=== PATIENT | female | born 1955 | race Caucasian/White ===

== ENCOUNTER 2022-05-10 08:18 | Outpatient (CLI) | payer MEDICARE, BC, SELFPAY ==
[2022-05-10 09:58] LABS: Chloride* 107 mmol/L (96-114); Potassium* 4.7 mmol/L (3.6-5.1); Sodium* 138 mmol/L (135-149)
[2022-05-10 10:00] LABS: Cholesterol* 177 mg/dL (90-199)
[2022-05-10 10:01] LABS: Blood Urea Nitrogen* 22 mg/dL (7-30); Calcium* 9.2 mg/dL (8.4-10.6); Carbon Dioxide* 28 mmol/L (20-32); Creatinine* 0.8 mg/dL (0.5-1.5); Estimated Glomerular Filt Rate 81 ml/min; Glucose* 98 mg/dL (60-115); HDL Cholesterol* 71 mg/dL (>=50); LDL Cholesterol Calculated 88 mg/dL (<100); Triglycerides* 91 mg/dL (40-149)
== END 2022-05-10 08:19 | disposition home or self-care (01) ==
PROVIDERS: PCP Internal Medicine; Visit Provider Internal Medicine
DX: Z00.00 Encounter for general adult medical examination without abnormal findings (principal); E03.9 Hypothyroidism, unspecified; E78.5 Hyperlipidemia, unspecified; I10 Essential (primary) hypertension
CPT/HCPCS: 80048; 80061; 84443

== ENCOUNTER 2022-06-15 07:30 | Outpatient (RCR) | payer MEDICARE, BC, SELFPAY ==
--- NOTE | 2022-05-17 12:50 | PT.OPEX ---
PT [place] Outpatient Eval PT [facility] Outpatient Eval Start: 05/17/22 08:02 Freq: Status: Active Protocol: Document 05/17/22 08:02 [facility] (Rec: 05/17/22 08:23 AC [id number]) E-signed By Lina Mitchell, PT, ATC Physical Therapy Outpatient Evaluation Insurance Information Insurance Name Medicare B Medical Diagnosis left knee OA left medial meniscal tear foot pain Treating Diagnosis left knee OA overpronation bilaterally Referring MD Draper Subjective Subjective pt has had positive effects on her foot and knee pain from wearing the orthotics we made in July 2021. She has noticed more neuropathic pain in her feet recently, and though her orthotics aren't a full year old yet, she knows they are less shock absorbing now than initially, so she feels it is time for a new pair Current Work Status Retired Precautions Therapy Limitations/Systems Review Not Limited Objective Range of Motion being that patient was last seen less than 1 year ago, we assume her foot measurements are nearly the same, therefore these measurement numbers are from July 2021: right ankle: DF=10, PF=60, INV=30, EV=12, RF varus=2, FF varus=17 left ankle: DF=8, PF=50, INV= 20, EV=15, RRvarus =4, FF varus=12 Assessment Assessment/Impression pt will benefit from skilled PT for custom orthotic fabrication Plan of Care Rehabilitation Potential Excellent Physical Therapy Goals 1. pt will be able to wear the orthotics for a full day with 1/10 max knee and foot discomfort Coordination/Communication With Referral Source Treatment Plan/Direct Interventions Orthotics/Braces Frequency/Duration 1 time visit unless pt requires an adjustment to the orthotic after 2-3 weeks of wearing them Patient Will Be Discharged From Therapy Independently Progressing Evaluation Billing PT Eval No Charge Yes Complexity Low Certification Information Initial Certification Date 05/17/22 Ending Certification Date 08/14/22
== END 2022-08-10 12:40 | disposition home or self-care (01) ==
PROVIDERS: PCP Internal Medicine; Visit Provider Orthopaedic Surgery Sports Medicine
DX: M17.12 Unilateral primary osteoarthritis, left knee (principal); Z51.89 Encounter for other specified aftercare
CPT/HCPCS: 97161; 97760; 97763

== ENCOUNTER 2022-08-22 08:37 | Outpatient (CLI) | payer MEDICARE, BC, SELFPAY ==
--- OUTSIDE RECORDS SUMMARY | 2022-08-22 14:59 | XMS_ITS | Encounter Summary ---
:1955 Author Organization [facility] Address [address] [place] [id number] Care Team Providers Name Role Phone Unavailable Primary Care Provider Unavailable Reason for Referral Outpatient (Routine) - Closed Specialty Diagnoses / Procedures Referred By Contact Refer red To Contact Diagnoses Aneurysm Splenic Artery (HCC) Azar Holly M.D. [place] Procedures US Abdomen Pelvis Vessels Limited Doppler US Mesenteric Artery [address] [place] [address] [phone] Referral ID Status Reason Start Date Expiration Date Visits Requ ested Visits Authorized [id number] Closed 04/29/2021 04/29/2022 1 1 Reason for Visit Outpatient (Routine) - Closed Specialty Diagnoses / Procedures Referred By Contact Refer red To Contact Diagnoses Aneurysm Splenic Artery (HCC) Azar Holly M.D. [facility] Procedures US Abdomen Pelvis Vessels Limited Doppler US Mesenteric Artery [address] [place] [address] [phone] Referral ID Status Reason Start Date Expiration Date Visits Requ ested Visits Authorized [id number] Closed 04/29/2021 04/29/2022 1 1 Encounter Details Date Type Department Care Team Description 06/08/2021 Hospital Encounter Department of [facility], Aneurysm Splenic Radiology, Neha Lerner M.D. Artery (HCC) Building, in [address] [place] [address] [address] [facility] [address] [place], [place] [phone] (Work) [phone] Social History Tobacco Use Types Packs/Day Years Used Date Smoking Tobacco: Never Assessed Social Isolation Answer Date Recorded In a typical week, how many times do you talk on the Patient refused 01/27/2022 phone with family, friends, or neighbors? How often do you get together with friends or Patient refuse d 01/27/2022 relatives? How often do you attend jehovah's witness or shinto services? Patien t refused 01/27/2022 Do you belong to any clubs or organizations such as Patient refused 01/27/2022 jehovah's witness groups, unions, fraternal or athletic groups, or school groups? How often do you attend meetings of the clubs or Patient ref used 01/27/2022 organizations you belong to? Are you now , , , , 01/27/2022 never or living with a partner? Physical Activity Answer Date Recorded On average, how many days per week do you engage in moderate to 3 days 01/27/2022 strenuous exercise (like walking fast, running, jogging, dancing, swimming, biking, or other activities that cause a light or heavy sweat)? On average, how many minutes do you engage in exercise at th is 30 min 01/27/2022 level? Stress Answer Date Recorded Do you feel stress - tense, restless, nervous, or To some ex tent 01/27/2022 anxious, or unable to sleep at night because your mind is troubled all the time - these days? Transportation Needs Answer Date Recorded In the past 12 months, has lack of transportation kept you f rom No 01/27/2022 medical appointments or from getting medications? In the past 12 months, has lack of transportation kept you f rom No 01/27/2022 meetings, work, or getting things needed for daily living? Housing Stability Answer Date Recorded In the last 12 months, was there a time when you were Patien t refused 01/27/2022 not able to pay the mortgage or rent on time? In the last 12 months, how many places have you lived? 1 01/27/2022 In the last 12 months, was there a time when you did No 01/27/20[address] to sleep or slept in a fpc (including now)? Education Answer Date Recorded What is the highest level of school Bachelor's degree (e.g., BA, AB, 05/26/2020 you have completed or the highest BS) degree you have received? Sex Assigned at Date Recorded Female 01/27/2022 2:09 PM CDT documented as of this encounter Medications at Time of Discharge Medication Sig Dispensed Refills Start Date End Date glucosamine sulfate Take 500 mg by 0 (GLUCOSAMINE) 500 mg mouth daily. capsule lisinopriL Take 20 mg by 0 04/24/2020 (PRINIVIL,ZESTRIL) 20 mg mouth daily. tablet loratadine (CLARITIN) 10 mg Take 10 mg by 0 tablet mouth daily. lysine 500 mg tablet Take 500 mg by 0 mouth daily. simvastatin (ZOCOR) 10 mg Take 10 mg by 0 021 tablet mouth daily. cholecalciferol (VITAMIN Take 5,000 Units 0 01/27/2022 D3) 5,000 Unit capsule by mouth daily. levothyroxine (SYNTHROID, Take 25 mcg by 0 201907/19/2022 LEVOTHROID) 25 mcg tablet mouth every morning before breakfast. documented as of this encounter Plan of Treatment Not on filedocumented as of this encounter Procedures Procedure Name Priority Date/Time Associated Comments Diagnosis US ABDOMEN PELVIS RAD - Routine 06/08/2021 9:44 Aneurysm Splenic Re sults for this VESSELS LIMITED (most inpatients AM CDT Artery (HCC) procedur e are in DOPPLER and all the results outpatients) section. documented in this encounter Results US Abdomen Pelvis Vessels Limited Doppler (06/08/2021 9:44 AM CDT) Anatomical Region Laterality Modality Abdomen, Pelvis, Ultrasound RST LOS, Ultrasound ARZ LOS, N/A Ultrasound Ultrasound FLA LOS Specimen (Source) Anatomical Collection Method Collection Time Re ceived Time Location / / Volume Laterality 06/08/2021 9:49 AM CDT Impressions 06/08/2021 10:37 AM CDT Stable 1.2 cm ??splenic artery aneurysm. Narrative 06/08/2021 10:37 AM CDT EXAM: ??US ABDOMEN PELVIS VESSELS LIMITED DOPPLER Exam performed with color and spectral D oppler analysis. COMPARISON: ??Ultrasound abdominal vesse l 05/26/2020; CT abdomen and pelvis with contrast 05/26/2020 FINDINGS: ??Stable fusiform aneurysm in the mid/distal splenic artery measuring 1.2 cm. Splenic calcifications. Procedure Note Kiran Aldridge M.D. - 06/08/2021Formatti ng of this note might be different from the original. EXAM: US ABDOMEN PELVIS VESSELS LIMITED DOPPLER Exam performed with color and spectral D oppler analysis. COMPARISON: Ultrasound abdominal vessel 05/26/2020; CT abdomen and pelvis with contrast 05/26/2020 FINDINGS: Stable fusiform aneurysm in th e mid/distal splenic artery measuring 1.2 cm. Splenic calcifications. IMPRESSION: Stable 1.2 cm splenic artery aneurysm. Azar Holly M.D. IMG US PROCEDURES documented in this encounter Visit Diagnoses Diagnosis Aneurysm Splenic Artery (HCC) documented in this encounter
--- OUTSIDE RECORDS SUMMARY | 2022-08-22 14:59 | XMS_ITS | Encounter Summary ---
:1955 Author Organization [facility] Address [address] [place] [address] Care Team Providers Name Role Phone Unavailable Primary Care Provider Unavailable Reason for Visit Reason Comments Sent back CD to patient Encounter Details Date Type Department Care Team Description 05/12/2020 Clinical Division of Vascular Prescheduling, Sent back CD to Communication and Endovascular Provider patient Surgery in [place], [place] [address] [place] [address] Social History Tobacco Use Types Packs/Day Years Used Date Smoking Tobacco: Never Assessed Social Isolation Answer Date Recorded In a typical week, how many times do you talk on the Patient refused 01/27/2022 phone with family, friends, or neighbors? How often do you get together with friends or Patient refuse d 01/27/2022 relatives? How often do you attend buddhist or denominational services? Patien t refused 01/27/2022 Do you belong to any clubs or organizations such as Patient refused 01/27/2022 buddhist groups, unions, fraternal or athletic groups, or [...] place to sleep or slept in a residential (including now)? Sex Assigned at Date Recorded Female 01/27/2022 2:09 PM CDT documented as of this encounter Miscellaneous Notes Telephone Encounter - Chioma Romeo - 05/12/2020 9:56 AM CDT I sent the CD and paperwork back to the patient to her home address. Chioma Wilson documented in this encounter Plan of Treatment Not on filedocumented as of this encounter Visit Diagnoses Not on filedocumented in this encounter
--- OUTSIDE RECORDS SUMMARY | 2022-08-22 14:59 | XMS_ITS | Encounter Summary ---
:1955 Author Organization [facility] Address [address] [place] [address] Care Team Providers Name Role Phone Unavailable Primary Care Provider Unavailable Reason for Referral Outpatient (Routine) - Closed Specialty Diagnoses / Procedures Referred By Contact Refer red To Contact Diagnoses Aneurysm Splenic Artery (HCC) Azar Holly M.D. [facility] Procedures US Abdomen Pelvis Vessels Limited Doppler US Mesenteric Artery [address] [place] [phone] Referral ID Status Reason Start Date Expiration Date Visits Requ ested Visits Authorized [id number] Closed 04/29/2021 04/29/2022 1 1 Outpatient (Routine) - Closed Specialty Diagnoses / Procedures Referred By Contact Refer red To Contact Vascular Medicine Diagnoses Aneurysm Splenic Artery (HCC) Azar Holly [place] Jose [facility] [address] [place] [address] Referral ID Status Reason Start Date Expiration Date Visits Requ ested Visits Authorized [id number] Closed 04/29/2021 04/29/2022 1 1 Encounter Details Date Type Department Care Team Description 04/29/2021 Orders Only Department of Vascular Sunshine Holly ysedis Splenic Artery Medicine in [place], Edis Cheng (HCC) (Primary Dx) [place] [address] [facility] 200 [place] [phone] Social History Tobacco Use Types Packs/Day Years Used Date Smoking Tobacco: Never Assessed Social Isolation Answer Date Recorded In a typical week, how many times do you talk on the Patient refused 01/27/2022 phone with family, friends, or neighbors? How often do you get together with friends or Patient refuse d 01/27/2022 relatives? How often do you attend rastafari or yazidism services? Lakishaen t refused 01/27/2022 Do you belong to any clubs or organizations such as Patient refused 01/27/2022 rastafari groups, unions, fraStitch or athletic groups, or school groups? How [...] was there a time when you were Юлия fernandes refused 01/27/2022 not able to pay the mortgage or rent on time? In the last 12 months, how many places have you lived? 1 01/27/2022 In the last 12 months, was there a time when you did No 01/27/2022 not [address] to sleep or slept in a fdc (including now)? Education Answer Date Recorded What is the highest level of school Bachelor's degree (e.g., BA, AB, 05/26/2020 you have completed or the highest BS) degree you have received? Sex Assigned at Date Recorded Female 01/27/2022 2:09 PM CDT documented as of this encounter Plan of Treatment Scheduled Referrals Name Type Priority Associated Order Schedule Diagnoses Vascular Medicine - Outpatient Referral Routine Aneurysm Splen ic Expected: Vascular surveillance Artery (HCC) 2020 consult (clinic) (Approximat e), Expires: 04/29/2024 documented as of this encounter Results US Abdomen Pelvis Vessels [...] Stable 1.2 cm splenic artery aneurysm. Azar AVINA US PROCEDURES documented in this encounter Visit Diagnoses Diagnosis Aneurysm Splenic Artery (HCC) - Primary Aneurysm Splenic Artery (HCC) documented in this encounter
--- OUTSIDE RECORDS SUMMARY | 2022-08-22 14:59 | XMS_ITS | Encounter Summary ---
:1955 Author Organization [facility] Address [address] [place] [address] Care Team Providers Name Role Phone Unavailable Primary Care Provider Unavailable Reason for Visit Outpatient (Routine) - Modified Order Specialty Diagnoses / Procedures Referred By Contact Refer red To Contact Diagnoses Aneurysm Splenic Artery (HCC) Azar Holly M.D. [facility] Procedures US Abdomen Pelvis Vessels Limited Doppler US Mesenteric Artery [address] [place] [address] [phone] Referral ID Status Reason Start Date Expiration Date Visits V isits Requested Authorized [id number] Modified 05/19/2020 05/19/2021 1 1 Order Encounter Details Date Type Department Care Team Description 05/26/2020 Hospital Encounter Department of Avni, Aneurysm Splenic Radiology, Neha Lerner M.D. Artery (HCC) [facility], in [address] [place] [address] [place] [address] [place], [place] [phone] (Work) [phone] Social History Tobacco Use Types Packs/Day Years Used Date Smoking Tobacco: Never Assessed Social Isolation Answer Date Recorded In a typical week, how many times do you talk on the Patient refused 01/27/2022 phone with family, friends, or neighbors? How often do you get together with friends or Patient refuse d 01/27/2022 relatives? How often do you attend confucianist or latter-day services? Patien t refused 01/27/2022 Do you belong to any clubs or organizations such as Patient refused 01/27/2022 confucianist groups, unions, fraternal or athletic groups, or [...] place to sleep or slept in a [facility] (including now)? Education Answer Date Recorded What [...] Take 500 mg by 0 mouth daily. cholecalciferol (VITAMIN Take 5,000 Units 0 01/27/2022 D3) 5,000 Unit capsule by mouth daily. levothyroxine (SYNTHROID, Take 25 mcg by 0 201907/19/2022 LEVOTHROID) 25 mcg tablet mouth every morning before breakfast. documented as of this encounter Plan of Treatment Not on filedocumented as of this encounter Procedures Procedure Name Priority Date/Time Associated Comments Diagnosis US ABDOMEN PELVIS RAD - Routine 05/26/2020 2:33 Aneurysm Splenic Re sults for this VESSELS LIMITED (most inpatients PM CDT Artery (HCC) procedur e are in DOPPLER and all the results outpatients) section. documented in this encounter Results US Abdomen Pelvis Vessels Limited Doppler (05/26/2020 2:33 PM CDT) Anatomical Region Laterality Modality Abdomen, Pelvis, Ultrasound RST LOS, Ultrasound ARZ LOS, N/A Ultrasound Ultrasound FLA LOS Specimen (Source) Anatomical Collection Method Collection Time Re ceived Time Location / / Volume Laterality 05/26/2020 2:34 PM CDT Impressions 05/26/2020 2:53 PM CDT Splenic artery aneurysm, measuring 1.2 c m in size. Narrative 05/26/2020 2:53 PM CDT EXAM: ??US ABDOMEN PELVIS VESSELS LIMITED DOPPLER Exam performed with color and spectral D oppler analysis. COMPARISON: ??CT angiogram dated 020 FINDINGS: ??A fusiform aneurysm of the m id/distal splenic artery measures approximately 1.2 cm in size. Allowing f or differences in technique, this finding appears unchanged since the prio r CTA. Incidentally noted calcified granulomas in the spleen. Procedure Note Daniel Muller M.D. - 05/26/2020For matting of this note might be different from the original. EXAM: US ABDOMEN PELVIS VESSELS LIMITED DOPPLER Exam performed with color and spectral D oppler analysis. COMPARISON: CT angiogram dated 0 FINDINGS: A fusiform aneurysm of the mid /distal splenic artery measures approximately 1.2 cm in size. Allowing f or differences in technique, this finding appears unchanged since the prio r CTA. Incidentally noted calcified granulomas in the spleen. IMPRESSION: Splenic artery aneurysm, measuring 1.2 c m in size. Azar G Costopoulos M.D. IMG US PROCEDURES documented in this encounter Visit Diagnoses Diagnosis Aneurysm Splenic Artery (HCC) documented in this encounter
--- OUTSIDE RECORDS SUMMARY | 2022-08-22 14:59 | XMS_ITS | Encounter Summary ---
:1955 Author Organization [facility] Address [address] [place] [address] Care Team Providers Name Role Phone Unavailable Primary Care Provider Unavailable Reason for Referral Outpatient (Routine) - Closed Specialty Diagnoses / Procedures Referred By Contact Refer red To Contact Vascular Medicine Neftaly Raines, [facility] mey Perez [address] [place] [address] Referral ID Status Reason Start Date Expiration Date Visits Requ ested Visits Authorized [id number] Closed 06/08/2021 06/08/2022 1 1 Outpatient (Routine) - Closed Specialty Diagnoses / Procedures Referred By Contact Refer red To Contact Diagnoses Aneurysm Splenic Artery (HCC) Neftaly Raines P.A.-C. [facility] Procedures US Abdomen Pelvis Vessels Limited Doppler [address] [place] [phone] Referral ID Status Reason Start Date Expiration Date Visits Requ ested Visits Authorized [id number] Closed 06/08/2021 06/08/2022 1 1 Reason for Visit Outpatient (Routine) - Closed Specialty Diagnoses / Procedures Referred By Contact Refer red To Contact Vascular Medicine Diagnoses Aneurysm Splenic Artery (HCC) Azar Holly, [facility] Alfred.DRochelle [address] [place] [address] Referral ID Status Reason Start Date Expiration Date Visits Requ ested Visits Authorized [id number] Closed 04/29/2021 04/29/2022 1 1 Encounter Details Date Type Department Care Team Description 06/08/2021 Comprehensive Visit Department of Neftaly Raines Splenic Vascular Medicine in A, P.A.-C. Artery (HCC) [place], [place] [address] [facility] (Primary Dx) [address] [place] [phone] Social History Tobacco Use Types Packs/Day Years Used Date Smoking Tobacco: Never Assessed Social Isolation Answer Date Recorded In a typical week, how many times do you talk on the Patient refused 01/27/2022 phone with family, friends, or neighbors? How often do you get together with friends or Patient refuse d 01/27/2022 relatives? How often do you attend confucianism or druze services? Patien t refused 01/27/2022 Do you belong to any clubs or organizations such as Patient refused 01/27/2022 confucianism groups, unions, fraInfinite Monkeys or athletic groups, or school groups? How [...] place to sleep or slept in a skilled nursing (including now)? Education Answer Date Recorded What is the highest level of school Bachelor's degree (e.g., BA, AB, 05/26/2020 you have completed or the highest BS) degree you have received? Sex Assigned at Date Recorded Female 01/27/2022 2:09 PM CDT documented as of this encounter Last Filed Vital Signs Vital Sign Reading Time Taken Comments Blood Pressure 112/73 06/08/2021 12:45 PM CDT Pulse 73 06/08/2021 12:45 PM CDT Temperature - - Respiratory Rate - - Oxygen Saturation - - Inhaled Oxygen Concentration - - Weight 76 kg (167 lb 8.8 oz) 06/08/2021 12:43 PM CDT Height 165 cm (5' 4.96) 06/08/2021 12:43 PM CDT Body Mass Index 27.92 06/08/2021 12:43 PM CDT documented in this encounter Progress Notes Neftaly Raines P.A.-C. - 06/08/2021 1:00 PM CDT SUBJECTIVE CHIEF COMPLAINT / REASON FOR VISIT Splenic artery aneurysm HISTORY OF PRESENT ILLNESS Aneurysm Splenic Artery (HCC) Ms. Pagan is a 65 y.o. female that I am seeing today for follow-up of her splenic artery aneurysm. She was seen by my colleague Dr. Holly one year ago. Unfortunately her from cancer. She recently lived in [place] for many years but moved to [place] to be near her daughter and son-in-law. She has another daughter with Down Syndrome who lives with her and COVID has been difficult in this transition. It was nice to meet the patient. The patient had a colon ulceration and had evaluation for this locally which included a CT scan which incidentally noted a splenic artery aneurysm at 1.2 cm. My colleagues last year repeat a CT scan and there was no obvious additional aneurysms or fibromuscular dysplasia so we decided to see her back in one year with ultrasound. We did mention to her that at 2 cm is usually when they consider intervention, but recently updated guidelines said we could go up to 3 cm. If he reaches 2 cm, we will reassess with vascular surgery the next steps but most likely get a CTA to better characterize the aneurysm. The patient has been asymptomatic. Patient's history includes hypertension, hypothyroidism, vaginal hysterectomy with BSO for bleeding and fibroids, and remote tonsillectomy. The patient is a never smoker. When she saw my colleague last year, he recommended a statin and she started on Simvastatin 10 mg. We discussed the pros and cons of this medication why we have recommended. The following portions of the patient's history were reviewed and updated as appropriate: allergies,current medications, family history, medical history, social history, surgical history, psychiatric history, substance abuse history, problem list, labs, diagnostic testing. I reviewed the pertinent clinical notes in the electronic health record. REVIEW OF SYSTEMS Systems were reviewed. Pertinent positives and pertinent negatives are documented in the history of present illness. OBJECTIVE VITALS BP 112/73 (BP Location: Left arm, Patient Position: Sitting) Pulse 73 Ht 165 cm Wt 76 kg BMI27.92 kg/m?? Body mass index is 27.92 kg/m??. PHYSICAL EXAMINATION General: In no acute distress Vessels: (Right/Left): Carotid no bruit/no bruit. Radial 4+/4+. Heart: Regular rate and rhythm. Lungs: Clear to auscultation. Abdomen: Soft and non-tender. No masses palpable. No bruits. Psychiatric: Pleasant. DIAGNOSTIC REVIEW All labs and diagnostic studies were reviewed. Ultrasound shows stable fusiform aneurysm in the mid/distal splenic artery measuring 1.2 cm. ASSESSMENT / PLAN #1 Aneurysm Splenic Artery (HCC) Patient's ultrasound shows stable aneurysm and this could be recheck by ultrasound in one year. All questions answered. Total time spent with patient care: 28 minutes. Neftaly Raines P.A.-C. documented in this encounter Plan of Treatment Scheduled Referrals Name Type Priority Associated Diagnoses Order [facility] Vascular Medicine Outpatient Referral Routine Exp ected: office visit 06/08/2022 (clinic) (Approximate), Expires: 06/08/2024 documented as of this encounter Results US Abdomen Pelvis Vessels Limited Doppler (07/19/2022 11:33 AM CDT) Anatomical Region Laterality Modality Abdomen, Pelvis, Ultrasound RST LOS, Ultrasound ARZ LOS, N/A Ultrasound Ultrasound FLA LOS Specimen (Source) Anatomical Collection Method Collection Time Re ceived Time Location / / Volume Laterality 07/19/2022 11:48 AM CDT Impressions 07/19/2022 11:50 AM CDT Splenic artery aneurysm which measures u p to 1.3 cm (previously 1.2 cm). Narrative 07/19/2022 11:50 AM CDT EXAM: US ABDOMEN PELVIS VESSELS LIMITED DOPPLER Exam performed with color and spectral D oppler analysis. COMPARISON: Ultrasound from 06/08/2021. FINDINGS: Again seen is aneurysmal dilat ation of the mid/distal splenic artery which measures up to 1.3 cm in diameter (previously measured 1.2 cm). The celiac artery is patent and without stenosis. Procedure Note Seng Zuniga M.D. - 07/19/2022Format ting of this note might be different from the original. EXAM: US ABDOMEN PELVIS VESSELS LIMITED DOPPLER Exam performed with color and spectral D oppler analysis. COMPARISON: Ultrasound from 06/08/2021. FINDINGS: Again seen is aneurysmal dilat ation of the mid/distal splenic artery which measures up to 1.3 cm in diameter (previously measured 1.2 cm). The celiac artery is patent and without stenosis. IMPRESSION: Splenic artery aneurysm which measures u p to 1.3 cm (previously 1.2 cm). Neftaly AVINA US PROCEDURES documented in this encounter Visit Diagnoses Diagnosis Aneurysm Splenic Artery (HCC) - Primary Aneurysm Splenic Artery (HCC) documented in this encounter
--- OUTSIDE RECORDS SUMMARY | 2022-08-22 14:59 | XMS_ITS | Encounter Summary ---
:1955 Author Organization [facility] Address [address] [place] [address] Care Team Providers Name Role Phone Elsewhere, Pcp Primary Care Provider Unavailable Reason for Visit Outpatient (Routine) - Closed Specialty Diagnoses / Procedures Referred By Contact Refer red To Contact Vascular Medicine Neftaly Raines, Daniela mathias P.A.-C. [address] [place] [address] Referral ID Status Reason Start Date Expiration Date Visits Requ ested Visits Authorized [id number] Closed 06/08/2021 06/08/2022 1 1 Encounter Details Date Type Department Care Team Description 07/19/2022 Office Visit Department of Vascular Neftaly Raines Splenic Artery Medicine in [place], [place] [facility] (Primary Dx) [address] [place] [phone] Social History Tobacco Use Types Packs/Day Years Used Date Smoking Tobacco: Never Smokeless Tobacco: Never Social Isolation Answer Date Recorded In a typical week, how many times do you talk on the Patient refused 01/27/2022 phone with family, friends, or neighbors? How often do you get together with friends or Patient refuse d 01/27/2022 relatives? How often do you attend sikhism or congregation services? Patien t refused 01/27/2022 Do you belong to any clubs or organizations such as Patient refused 01/27/2022 sikhism groups, unions, fraternal or athletic groups, or [...] place to sleep or slept in a penitentiary (including now)? Education Answer Date Recorded What is the highest level of school Bachelor's degree (e.g., BA, AB, 05/26/2020 you have completed or the highest BS) degree you have received? Sex Assigned at Date Recorded Female 01/27/2022 2:09 PM CDT documented as of this encounter Last Filed Vital Signs Vital Sign Reading Time Taken Comments Blood Pressure 112/70 07/19/2022 1:37 PM CDT Pulse 79 07/19/2022 1:37 PM CDT Temperature - - Respiratory Rate - - Oxygen Saturation - - Inhaled Oxygen Concentration - - Weight 75.1 kg (165 lb 9.1 oz) 07/19/2022 1:35 PM CDT Height 165.9 cm (5' 5.32) 07/19/2022 1:35 PM CDT Body Mass Index 27.29 07/19/2022 1:35 PM CDT documented in this encounter Progress Notes Neftaly Raines P.A.-C. - 07/19/2022 1:45 PM CDT SUBJECTIVE CHIEF COMPLAINT / REASON FOR VISIT Splenic artery aneurysm HISTORY OF PRESENT ILLNESS Aneurysm Splenic Artery (HCC) Ms. Pagan is a 67 y.o. female that I am seeing today for follow-up of her splenic artery aneurysm. Unfortunately her from cancer. She lived in [place] for many years but moved to [place] to be near her daughter and son-in-law. She has another daughter with Down Syndrome who lives with her and COVID has been difficult in this transition. It was nice to see her back. The patient had a colon ulceration and had evaluation for this locally which included a CT scan which incidentally noted a splenic artery aneurysm at 1.2 cm. My colleagues in the past repeated a CT scan and there was no obvious additional aneurysms or fibromuscular dysplasia so we have been following yearly by ultrasound. We did mention to her that at 2 cm is usually when they consider intervention, but recently updated guidelines said we could go up to 3 cm. If he reaches 2 cm, we will reassess with vascular surgery the next steps but most likely get a CTA to better characterize the aneurysm. The patient has been asymptomatic. Patient's history includes hypertension, hypothyroidism (currently is off medication for trial), hyperlipidemia, vaginal hysterectomy with BSO for bleeding and fibroids, and remote tonsillectomy. The patient is a never smoker. The following portions of the patient's history [...] history of present illness. OBJECTIVE VITALS BP 112/70 (BP Location: Left arm, Patient Position: Sitting) Pulse 79 Ht 165.9 cm Wt 75.1 kg BMI 27.29 kg/m?? Body mass index is 27.29 kg/m??. PHYSICAL EXAMINATION General: In no acute distress Psychiatric: Pleasant. DIAGNOSTIC REVIEW All labs and diagnostic studies were reviewed. U/S: Splenic artery aneurysm which measures up to 1.3 cm (previously 1.2 cm). ASSESSMENT / PLAN #1 Aneurysm Splenic Artery (HCC) The patient returns for follow-up of her splenic artery aneurysm. This may have grown by 1 mm only in the last year but still is below the 2 cm where we would consider a CT scan. The patient would liketo follow this locally next year so we will attempt to do that and reassess. All questions answered. Total time spent with patient care: 18 minutes. Neftaly Raines P.A.-C. documented in this encounter Plan of Treatment Not on filedocumented as of this encounter Visit Diagnoses Diagnosis Aneurysm Splenic Artery (HCC) - Primary documented in this encounter Care Teams Jacquard Lace Weaver Relationship Specialty Start Date End Date Elsewhere, Pcp PCP - General Internal Medicine 01/27/22 documented as of this encounter
--- OUTSIDE RECORDS SUMMARY | 2022-08-22 14:59 | XMS_ITS | Encounter Summary ---
:1955 Author Organization [facility] Address [address] [place] [address] Care Team Providers Name Role Phone Unavailable Primary Care Provider Unavailable Reason for Referral MRI/CAT/PET Scan (Routine) - Closed Specialty Diagnoses / Procedures Referred By Contact Refer red To Contact Radiology Diagnoses Aneurysm Splenic Artery (HCC) Azar Holly M.D. [facility] Procedures CT Abdomen Pelvis Angiogram with IV Contrast [address] [place] [phone] Referral ID Status Reason Start Date Expiration Date Visits Requ ested Visits Authorized [id number] Closed 05/19/2020 05/19/2021 1 1 Reason for Visit MRI/CAT/PET Scan (Routine) - Closed Specialty Diagnoses / Procedures Referred By Contact Refer red To Contact Radiology Diagnoses Aneurysm Splenic Artery (HCC) Azar Holly M.D. [facility] Procedures CT Abdomen Pelvis Angiogram with IV Contrast [address] [place] [phone] Referral ID Status Reason Start Date Expiration Date Visits Requ ested Visits Authorized [id number] Closed 05/19/2020 05/19/2021 1 1 Encounter Details Date Type Department Care Team Description 05/26/2020 Hospital Encounter Department of [facility], Aneurysm Splenic Radiology, Neha Lerner M.D. Artery (HCC) Building, in [address] [place] [address] [address] [facility] [address] [place], [place] [phone] (Work) [phone] Social History Tobacco Use Types Packs/Day Years Used Date Smoking Tobacco: Never Assessed Social Isolation Answer Date Recorded In a typical week, how many times do you talk on the Patient refused 01/27/2022 phone with family, friends, or neighbors? How often do you get together with friends or Patient refuse d 01/27/2022 relatives? How often do you attend hindu or alevism services? Patien t refused 01/27/2022 Do you belong to any clubs or organizations such as Patient refused 01/27/2022 hindu groups, unions, fraMightyNest or athletic groups, or school groups? How [...] before breakfast. documented as of this encounter Nursing Notes Sunny Olvera, R.N. - 05/26/2020 2:00 PM CDT A review of the patients current medications was completed under the context of radiology care priorto contrast/medication administration. documented in this encounter Plan of Treatment Not on filedocumented as of this encounter Procedures Procedure Name Priority Date/Time Associated Comments Diagnosis CT ABDOMEN PELVIS RAD - Routine 05/26/2020 2:24 Aneurysm Splenic Re sults for this ANGIOGRAM WITH IV (most inpatients PM CDT Artery (HCC) proced ure are in CONTRAST and all the results outpatients) section. documented in this encounter Results CT Abdomen Pelvis Angiogram with IV Contrast (05/26/2020 2:24 PM CDT) Anatomical Region Laterality Modality Abdomen, Pelvis, Cardiovascular RST N/A Comp uted Tomography, Computed LOS, Abdominal ARZ LOS, Vascular Tomogra phy Interventional ARZ LOS, Vascular Interventional FLA LOS, Abdominal FLA LOS Specimen (Source) Anatomical Collection Method Collection Time Re ceived Time Location / / Volume Laterality 05/26/2020 2:45 PM CDT Impressions 05/26/2020 2:53 PM CDT Unchanged 12 x 12 mm distal splenic renetta ry aneurysm. Narrative 05/26/2020 2:53 PM CDT EXAM: ??CT ABDOMEN PELVIS ANGIOGRAM WITH IV CONTRAST COMPARISON: ??Outside CT 04/29/2019 FINDINGS: VASCULAR FINDINGS: * ??Unchanged appearances of a 12 x 12 m m aneurysm in the distal splenic artery (image 90, series 4). The rest of the sp lenic artery is normal. * ??The celiac artery, SMA and JONATHAN are p atent. * ??Patent bilateral dual renal arteries . * ??Patent bilateral iliofemoral arterie s with mild atherosclerosis and no significant stenosis. * ??Patent IVC, portal vein, splenic vei n and SMA. * ??Patent bilateral iliofemoral veins. ADDITIONAL FINDINGS: * ??Subsegmental scarring in bilateral l ower lobes. * ??Calcified granulomas in the liver an d spleen. Unchanged 8 mm hypoattenuating lesion in the left lobe of the liver is too small to characterize. * ??The gallbladder, pancreas, adrenal g lands and kidneys are normal. * ??No small or large bowel dilation. Sm all hiatal hernia. Diverticulum from 2nd part of duodenum. * ??No mass or lymphadenopathy in abdome n or pelvis. * ??Mild degenerative changes of the spi ne. Procedure Note Robles Singh M.B.B.S., M.D. - 05/09 EXAM: CT ABDOMEN PELVIS ANGIOGRAM WITH I V CONTRAST COMPARISON: Outside CT 04/29/2019 FINDINGS: VASCULAR FINDINGS: * Unchanged appearances of a 12 x 12 mm aneurysm in the distal splenic artery (image 90, series 4). The rest of the sp lenic artery is normal. * The celiac artery, SMA and JONATHAN are pat ent. * Patent bilateral dual renal arteries. * Patent bilateral iliofemoral arteries with mild atherosclerosis and no significant stenosis. * Patent IVC, portal vein, splenic vein and SMA. * Patent bilateral iliofemoral veins. ADDITIONAL FINDINGS: * Subsegmental scarring in bilateral low er lobes. * Calcified granulomas in the liver and spleen. Unchanged 8 mm hypoattenuating lesion in the left lobe of the liver is too small to characterize. * The gallbladder, pancreas, adrenal gla nds and kidneys are normal. * No small or large bowel dilation. Smal l hiatal hernia. Diverticulum from 2nd part of duodenum. * No mass or lymphadenopathy in abdomen or pelvis. * Mild degenerative changes of the spine . IMPRESSION: Unchanged 12 x 12 mm distal splenic renetta ry aneurysm. Azar Holly M.D. [facility] PROCEDURES documented in this encounter Visit Diagnoses Diagnosis Aneurysm Splenic Artery (HCC) documented in this encounter Administered Medications Inactive Administered Medications - up to 3 most recent administrations Medication Order MAR Action Action Date Dose Rate Site iohexoL 350 mg iodine/mL solution Given 05/26/2020 2:05 PM CDT 1 00 mL 1-200 mL (OMNIPAQUE) 1-200 mL, intravenous, Once in imaging, contrast, Starting on 05/26/20 at 1333, For 1 dose, Imaging Protocol Orders, Dose per Radiant Medication Guidelines sodium chloride (PF) 0.9 % injection 1-1 00 mL Given 05/26/2020 2:05 PM CDT 30 mL 1-100 mL, intravenous, Once, On 05/26/20 at 1345, For 1 dose, Imaging Protocol Orders documented in this encounter
--- OUTSIDE RECORDS SUMMARY | 2022-08-22 14:59 | XMS_ITS | Clinical Summary ---
:1955 Author Organization [facility] Address [address] [place] [address] Care Team Providers Name Role Phone Elsewhere, Pcp Primary Care Provider Unavailable Source Comments Patient records contain information from all sites at [facility]. For routine questions regarding patient records, call [phone] during business hours, M-F 8:00 AM - 5:00 PM Central Time. Record requests for emergency care only can be directed to [phone] at any time.[facility] Allergies Active Allergy Reactions Severity Noted Date Comments Pollen Extracts Cough 05/19/2020 Medications Medication Sig Dispensed Refills Start Date End Date Status lisinopriL Take 20 mg by 0 04/24/2020 Acti ve (PRINIVIL,ZESTRIL) 20 mouth daily. mg tablet loratadine (CLARITIN) Take 10 mg by 0 Active 10 mg tablet mouth daily. lysine 500 mg tablet Take 500 mg by 0 Active mouth daily. glucosamine sulfate Take 500 mg by 0 Active (GLUCOSAMINE) 500 mg mouth daily. capsule simvastatin (ZOCOR) 10 Take 10 mg by 0 03/09/2021 Active mg tablet mouth daily. Active Problems Problem Noted Date Aneurysm Splenic Artery 07/19/2022 Osteopenia 01/31/2022 Menopause 01/31/2022 Encounters Date Type Specialty Care Team Description 07/19/2022 Office Visit Vascular Medicine Neftaly Raines Aneurysm Splenic A, P.A.-C. Artery (HCC) (P rimary Dx) 07/19/2022 Hospital Encounter Radiology Neftaly Raines Aneurys m Splenic A, P.A.-C. Artery (HCC) from Last 3 Months Social History Tobacco Use Types Packs/Day Years Used Date Smoking Tobacco: Never Smokeless Tobacco: Never Social Isolation Answer Date Recorded In a typical week, how many times do you talk on the Patient refused 01/27/2022 phone with family, friends, or neighbors? How often do you get together with friends or Patient refuse d 01/27/2022 relatives? How often do you attend congregation or yazidism services? Юлия fernandes refused 01/27/2022 Do you belong to any clubs or organizations such as Patient refused 01/27/2022 congregation groups, unions, fraternal or athletic groups, or [...] Date Recorded Female 01/27/2022 2:09 PM CDT Last Filed Vital Signs Vital Sign Reading [...] Mass Index 27.29 07/19/2022 1:35 PM CDT Plan of Treatment Health Maintenance Due Date Last Done Comments CT Colonography 1955 Cologuard 1955 Colonoscopy 1955 Colorectal Cancer Screening 1955 FIT 1955 Fasting Glucose for Diabetes 1955 Screening Hepatitis C Screening 1955 Mammogram 1955 Potassium Level 1955 Sodium Level 1955 DTaP,Tdap,and Td Vaccines (1 - 11/19/2013 11/18/2013 Tdap) Creatinine Level 05/19/2021 05/19/2020 Depression Screening (Annual 10/09/2021 PHQ-2) Fall Risk Screen (Annual) 10/09/2021 COVID-19 Vaccine (5 - Booster for 04/01/2022 02/04/2022, , Pfizer series) 01/01/2021, Additional history exists Zoster Vaccines Completed 08/18/2018, 06/18/2018, 2014 Pneumococcal vaccine (65+ years) Completed 06/17/2020, 06/2020 Bone Density Scan (Osteoporosis Discontinued 01/26/2022 Screen) Influenza Vaccine Completed 08/05/2022, 08/03/2021, 08/19/2020, Additional history exists Procedures Procedure Name Priority Date/Time Associated Comments Diagnosis US ABDOMEN PELVIS RAD - Routine 07/19/2022 11:33 Aneurysm Splenic R esults for this VESSELS LIMITED (most inpatients AM CDT Artery (HCC) procedur e are in DOPPLER and all the results outpatients) section. from Last 3 Months Results US Abdomen Pelvis Vessels Limited Doppler [...] to 1.3 cm (previously 1.2 cm). Neftaly Raines P.A.-C. IMG US PROCEDURES from Last 3 Months Insurance Payer Benefit Plan / Subscriber ID Effective Phone Address T ype Group Dates MEDICARE MEDICARE A AND [id number] 2019-Prese [phone] [place] [address] [facility] [id number] 2022-[place]se [place] [place] [id number] Indemnity [facility] MEDICARE BLUE B nt MILY MUELLER [id number] Care Teams Member Certification Manager Relationship Specialty Start Date End Date Elsewhere, Pcp PCP - General Internal Medicine 01/27/22
--- OUTSIDE RECORDS SUMMARY | 2022-08-22 14:59 | XMS_ITS | Encounter Summary ---
:1955 Author Organization [facility] Address [address] [place] [address] Care Team Providers Name Role Phone Unavailable Primary Care Provider Unavailable Reason for Referral Outpatient (Routine) - Closed Specialty Diagnoses / Procedures Referred By Contact Refer red To Contact Vascular Medicine Diagnoses Aneurysm Splenic Artery (HCC) Azar Holly [facility] [place] [address] [place] [address] Referral ID Status Reason Start Date Expiration Date Visits Requ ested Visits Authorized [id number] Closed 05/19/2020 05/19/2021 1 1 MRI/CAT/PET Scan (Routine) - Closed Specialty Diagnoses / Procedures Referred By Contact Refer red To Contact Radiology Diagnoses Aneurysm Splenic Artery (HCC) Azar Holly M.D. [facility] Procedures CT Abdomen Pelvis Angiogram with IV Contrast [address] [place], [place] [address] Referral ID Status Reason Start Date Expiration Date Visits Requ ested Visits Authorized [id number] Closed 05/19/2020 05/19/2021 1 1 Reason for Visit Outpatient (Routine) - Closed Specialty Diagnoses / Procedures Referred By Contact Refer red To Contact Vascular Surgery Diagnoses Aneurysm Splenic Artery (HCC) Susi Hazel [place] Jose Overton [address] [place] [address] Referral ID Status Reason Start Date Expiration Date Visits Requ ested Visits Authorized [id number] Closed 05/01/2020 05/01/2021 1 1 Encounter Details Date Type Department Care Team Description 05/19/2020 Comprehensive Visit Department of Misha Holly Splenic Artery (HCC) (Primary Dx); Vascular Medicine Azar Lerner M.D. Hypertension Essential Primary; in [place] [address] [address] [place], [place] [address] [facility] [address] [place], [place] [phone] (Work) [phone] Social History Tobacco Use Types Packs/Day Years Used Date Smoking Tobacco: Never Assessed Social Isolation Answer Date Recorded In a typical week, how many times do you talk on the Patient refused 01/27/2022 phone with family, friends, or neighbors? How often do you get together with friends or Patient refuse d 01/27/2022 relatives? How often do you attend jainism or mu-ism services? Patien t refused 01/27/2022 Do you belong to any clubs or organizations such as Patient refused 01/27/2022 jainism groups, unions, fraVoovio aka [employer] or athletic groups, or school groups? How [...] place to sleep or slept in a senior living (including now)? Sex Assigned at Date Recorded Female 01/27/2022 2:09 PM CDT documented as of this encounter Last Filed Vital Signs Vital Sign Reading Time Taken Comments Blood Pressure 120/70 05/19/2020 12:39 PM CDT Pulse 69 05/19/2020 12:39 PM CDT Temperature - - Respiratory Rate - - Oxygen Saturation - - Inhaled Oxygen Concentration - - Weight 73.5 kg (162 lb 0.6 oz) 05/19/2020 12:37 PM CDT Height 166.1 cm (5' 5.39) 05/19/2020 12:37 PM CDT Body Mass Index 26.64 05/19/2020 12:37 PM CDT documented in this encounter Consult Notes Azar Holly M.D. - 05/19/2020 1:00 PM CDT REFERRAL SOURCE Susi Hazel M.D. [address] [place] [address] SUBJECTIVE CHIEF COMPLAINT / REASON FOR VISIT HISTORY OF PRESENT ILLNESS Ms. Pagan is a 64 y.o. female that I am seeing today for an opinion and recommendations on a splenic artery aneurysm. The patient has been referred by Susi Hazel M.D. 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 tells me that she had the incidental finding of a splenic artery aneurysm on a CT scan of the abdomen last year in [place]. There are images in [facility]S dated April 29 of last year and the report is as noted below. She is asymptomatic with her 1.2 centimeter splenic artery aneurysm. The recommendation made to her last year was to follow the aneurysm yearly and she is due for a recheck this year. She has subsequently moved to [place] and has been referred here for surveillance. She has had no problems with x-ray contrast and no issues with renal insufficiency. Past Medical History: Her past medical history includes hypertension, hypothyroidism, vaginal hysterectomy with BSO for bleeding and fibroids, and remote tonsillectomy. Social History: She has never been a smoker. She drinks very little alcohol. Family History: Mother age 77 from the complications of Parkinson's Disease, father age 62 from the complications of alcoholism and lupus, sister age 63, sister age 78, and a brother age 16 from the complications of cerebral palsy. There is no family history of arterial aneur ysms in these individuals to the patient's knowledge. The following portions of the patient's history were reviewed and updated as appropriate: allergies,current medications, family history, medical history, social history, surgical history, psychiatric history, substance abuse history, problem list, labs, diagnostics tests. I reviewed the pertinent clinical notes in the electronic health record. REVIEW OF SYSTEMS A complete review of systems was performed with pertinent information listed in the HPI, all others negative. OBJECTIVE VITALS BP 120/70 (BP Location: Right arm, Patient Position: Sitting) Pulse 69 Ht 166.1 cm Wt 73.5 kg BMI 26.64 kg/m?? PHYSICAL EXAMINATION Body mass index is 26.64 kg/m??. Physical Exam Neurological: Awake, alert, and appropriately conversant. Psychiatry: In no distress and she did not appear to be depressed. Vessels: Radial pulses were 4+ bilaterally, ulnars 3+ bilaterally, brachials 4+ bilaterally, carotids 4+ bilaterally, femorals 3+ bilaterally, popliteals 2+ bilaterally, and dorsalis pedis and posterior tibials 4+ bilaterally. Eyes: The pupils were equal, round, and reactive to light and accommodation. Extraocular movements were intact. Optic discs were not visualized. ENT: Tympanic membranes were obscured bilaterally. Oropharynx was not examined as the patient was wearing a mask due to the COVID-19 pandemic. Respiratory: Lungs were clear to auscultation. Cardiovascular: Cardiac exam revealed a regular rate with a normal S1 and S2. Abdomen: Active bowel sounds. No bruits. No tenderness. : Not examined. Musculoskeletal: No spinous process tenderness on back examination. She did not have limb atrophy. DIAGNOSTIC REVIEW All relevant labs and diagnostic studies below were reviewed. She had paper records with laboratories dated April 17 of this year which noted a glucose of 98 with a creatinine of 0.7, sodium 140, potassium 4.4, calcium 9.1, total cholesterol 200, triglycerides 104, LDL cholesterol 113, and HDL cholesterol 65. Within QREADS there is a CT of the abdomen and pelvis with contrast dated April 29, 2019 with a report attached indicating the presence of a 1.2 centimeter splenic artery aneurysm. I personally reviewed the CT scan of the abdomen and pelvis dated April 29, 2019 and available withinQREADS today at the time of the patient's visit. ASSESSMENT / PLAN ASSESSMENT #1 Aneurysm Splenic Artery (HCC) has an incidentally discovered and asymptomatic 1.2 centimeter splenic artery aneurysm. Sheis due for an annual recheck and I think it would be reasonable to repeat a CTA of the abdomen and pelvis and also obtain an ultrasound exam to see if the aneurysm can be adequately imaged on ultrasound exam for purposes of future surveillance. We discussed when we would consider repair of an asymptomatic and non-rapidly growing splenic artery aneurysm, and usually that would be at a diameter of 2.0 centimeters or greater. I also believe that we should look carefully for any other intra-abdominal aneurysms and to also look for any underlying arterial conditions such as Fibromuscular Dysplasia whichmight explain the presence of the splenic artery aneurysm. #2 Hypertension Essential Primary This is a risk factor for atherosclerosis and arterial aneurysm formation and is on treatment. #3 Hypothyroidism This is a risk factor for hyperlipidemia with subsequent atherosclerosis and arterial aneurysm formation and is on treatment. PLAN 1. Recheck serum creatinine before contrast imaging procedures here. 2. CTA of the abdomen and pelvis. 3. Celiac and mesenteric arterial ultrasound exam to see if the splenic artery aneurysm can be adequately imaged. 4. I will see the patient in return after she completes the above. Total time spent with patient: 55 minutes. Time spent in counseling and coordination of care: 30 minutes. Azar Holly M.D. documented in this encounter Plan of Treatment Scheduled Referrals Name Type Priority Associated Diagnoses Order S [facility] Vascular Medicine Outpatient Referral Routine Aneurysm Splenic Expected: office visit Artery (HCC) 05/19/2020 (clinic) (Approximate), Expires: 05/19/2023 documented as of this encounter Results CT Abdomen Pelvis Angiogram [...] spi ne. Procedure Note Robles Singh M.B.B.S., MLuigi. - 05/09 EXAM: CT ABDOMEN PELVIS ANGIOGRAM [...] splenic renetta ry aneurysm. Azar Holly M.D. IMG CT PROCEDURES Creatinine with Estimated GFR (05/19/2020 2:25 PM CDT) athologist Signature Creatinine 0.96 0.59 - 05/19/2020 DTL 1.04 mg/dL 3:19 PM CDT eGFR-Non 62 >=60 05/19/2020 DTL Black/ mL/min/BSA 3:19 PM CDT Ivorian Comment: ----ADDITIONAL INFORMATION---- Estimated GFR calculated using the 2009 CKD_EPI creatinine equation. eGFR-Black/ 72 >=60 mL/min/BSA 2019 3:19 PM CDT DTL Comment: ----ADDITIONAL INFORMATION---- Estimated GFR calculated using the 2009 CKD_EPI creatinine equation. Specimen Anatomical Collection Method Collection Time Receive d Time (Source) Location / / Volume Laterality Blood (Blood, 05/19/2020 2:25 PM 05/19/20 20 3:03 Venous) CDT PM CDT Azar Holly M.D. LAB BLOOD ADD-ON Performing Organization Address City/State/ZIP Code Phon e Number [facility] - [address] [place], [place] [address] [facility] [place] [address] Laboratories-[facility] [address] documented in this encounter Visit Diagnoses Diagnosis Aneurysm Splenic Artery (HCC) - Primary Hypertension Essential Primary Hypothyroidism Aneurysm Splenic Artery (HCC) documented in this encounter
--- OUTSIDE RECORDS SUMMARY | 2022-08-22 14:59 | XMS_ITS | Encounter Summary ---
:1955 Author Organization [facility] Address [address] [place] [address] Care Team Providers Name Role Phone Unavailable Primary Care Provider Unavailable Reason for Referral Outpatient (Routine) - Closed Specialty Diagnoses / Procedures Referred By Contact Refer red To Contact Vascular Surgery Diagnoses Aneurysm Splenic Artery (HCC) Susi Hazel [place] M.D. [address] [place] [address] Referral ID Status Reason Start Date Expiration Date Visits Requ ested Visits Authorized [id number] Closed 05/01/2020 05/01/2021 1 1 Encounter Details Date Type Department Care Team Description 05/01/2020 [facility] Susi Hazel Aneurysm Splenic AND MIRA Payan M.D. Artery (HCC) [address] [facility] [address] [facility] (Primary Dx) [place] [address] [phone] Social History Tobacco Use Types Packs/Day Years Used Date Smoking Tobacco: Never Assessed Social Isolation Answer Date Recorded In a typical week, how many times do you talk on the Patient refused 01/27/2022 phone with family, friends, or neighbors? How often do you get together with friends or Patient refuse d 01/27/2022 relatives? How often do you attend caodaism or episcopalian services? Patien t refused 01/27/2022 Do you belong to any clubs or organizations such as Patient refused 01/27/2022 caodaism groups, unions, fraternal or athletic groups, or [...] place to sleep or slept in a jail (including now)? Sex Assigned at Date Recorded Female 01/27/2022 2:09 PM CDT documented as of this encounter Plan of Treatment Scheduled Referrals Name Type Priority Associated Diagnoses Order S [facility] Vascular Center Outpatient Referral Routine Aneurysm Splenic E xpected: Referral Artery (HCC) 05/01/2020 (Approximate), Expires: 05/01/2023 documented as of this encounter Visit Diagnoses Diagnosis Aneurysm Splenic Artery (HCC) - Primary documented in this encounter
--- OUTSIDE RECORDS SUMMARY | 2022-08-22 14:59 | XMS_ITS | Encounter Summary ---
:1955 Author Organization [facility] Address [address] [place] [address] Care Team Providers Name Role Phone Elsewhere, Pcp Primary Care Provider Unavailable Reason for Visit Appointment Request (Routine) - Closed Specialty Diagnoses / Procedures Referred By Contact Refer red To Contact Endocrinology Diagnoses Osteopenia Osteoporosis Referral ID Status Reason Start Date Expiration Date Visits Requ ested Visits Authorized [id number] Closed 01/05/2022 01/05/2023 1 1 Encounter Details Date Type Department Care Team Description 01/31/2022 Comprehensive Visit Division of Milton Pace (Primary Dx); Endocrinology precious Tapia M.D., Ph.D. [place], [place] [address] [facility] [address] [place] [phone] Social History Tobacco Use Types Packs/Day Years Used Date Smoking Tobacco: Never Smokeless Tobacco: Never Social Isolation Answer Date Recorded In a typical week, how many times do you talk on the Patient refused 01/27/2022 phone with family, friends, or neighbors? How often do you get together with friends or Patient refuse d 01/27/2022 relatives? How often do you attend shinto or latter-day services? Lakishaen t refused 01/27/2022 Do you belong to any clubs or organizations such as Patient refused 01/27/2022 shinto groups, unions, fraternal or athletic groups, or [...] place to sleep or slept in a fci (including now)? Education Answer Date Recorded What is the highest level of school Bachelor's degree (e.g., BA, AB, 05/26/2020 you have completed or the highest BS) degree you have received? Sex Assigned at Date Recorded Female 01/27/2022 2:09 PM CDT documented as of this encounter Last Filed Vital Signs Vital Sign Reading Time Taken Comments Blood Pressure 131/77 01/31/2022 2:35 PM CDT Pulse 98 01/31/2022 2:35 PM CDT Temperature - - Respiratory Rate - - Oxygen Saturation - - Inhaled Oxygen Concentration - - Weight 76.4 kg (168 lb 6.9 oz) 01/31/2022 2:35 PM CDT Height 162.2 cm (5' 3.86) 01/31/2022 2:35 PM CDT Body Mass Index 29.04 01/31/2022 2:35 PM CDT documented in this encounter Consult Notes Milton Pace M.D., Ph.D. - 01/31/2022 2:30 PM CDT Referral source: Self-referred. She has previously been followed by Dr. Dm Elliott in [place]. SUBJECTIVE HISTORY This patient presents for evaluation of osteopenia. BONE MINERAL DENSITY TESTING Performed January 26, 2022 Left femur neck T-score -2.1 Left total hip T-score-1.7 Right femur neck T-score-1.6 Right total hip T-score-1.2 Lumbar spine T-score-2.1 Trabecular bone score 1.282 FRAX score 12.1% for any fracture and 2.2% specifically for hip fracture over the next 10 years FRACTURE AND HEIGHT LOSS HISTORY She denies any fractures as an adult. She estimates height loss at 1 in. MOBILITY/LIVING ENVIRONMENT/FALL RISK Patient has had at least 1 fall during the past 5 years which occurred when she slipped while on thestairs The patient denies the following risk factors for falling: Vision impairment Medications/sleeping pill Imbalance Neurologic disorder Diabetes mellitus RISK FACTORS FOR OSTEOPOROSIS/OSTEOPOROTIC FRACTURE Medications affecting bone health - denies Family history of osteopenia/osteoporosis - she is unsure Kidney stones or hypercalcemia/hypercalciuria - denies Significant gastrointestinal surgery - denies Diarrhea/malabsorption - denies Weight loss - denies Tobacco use - denies Alcohol use - rare social Hypogonadism - underwent VENKAT/BSO at age 49 secondary to fibroids. She was maintained on hormone replacement therapy for approximately 3 years thereafter Transplantation - denies Hyperthyroidism - denies Rheumatoid arthritis - denies Other risk factors - history of hypovitaminosis D TREATMENT - MEDICATIONS FOR OSTEOPENIA/OSTEOPOROSIS Past treatment has included: None TREATMENT: NUTRITION/FITNESS Dietary calcium intake: She has 1 serving of milk daily, eats yogurt most mornings, has cheese several times a week, and occasionally eats ice cream Calcium and vitamin D supplementation: She takes supplemental calcium 300 mg daily, and supplementalvitamin-D 400 International Unit daily Activity/Exercise: Her physical activity is primarily related to activities of daily living around her home MEDICAL HISTORY The following portions of the patient's history were reviewed and updated as appropriate: allergies,current medications, family history, medical history, social history, surgical history and problem list. OBJECTIVE PHYSICAL EXAMINATION Vitals: 01/31/22 1435 BP: 131/77 Pulse: 98 General: Appears well. In no acute distress HEENT: Dental health appears relatively good. Spine: No tenderness to palpation along her entire spine. I am able to insert 3 fingers between her superior hips and lower ribs bilaterally. She has a wall- occiput distance of 1 fingerbreadth with minimal to no kyphosis. Gait: I do not appreciate overt imbalance. Psych: Mood and affect normal. DIAGNOSTICS PERTINENT LABORATORY RESULTS Normal studies within the past several years include: Serum calcium Serum phosphorus Bone alkaline phosphatase Serum CTX Serum osteocalcin Serum P1NP Serum creatinine 25-hydroxyvitamin D Celiac antibodies negative 24 hour urine calcium 24 hour urine creatinine ASSESSMENT / PLAN #1 Osteopenia #2 Menopause The patient was provided with written and/or verbal information regarding: the importance of limiting risk for falls and heavy lifting, use of proper technique with a straight back when lifting, maintaining an active lifestyle to include skeletal loading in the form of walking or other weightbearing activities for at least an hour in total daily, and maintaining adequate calcium and vitamin D intake.She was provided with the ???Sources of Calcium?? handout. We also discussed how bone mineral density tests are interpreted, changes in bone mass across the lifespan, the difference between bone forming and bone removing cells, and how bone removing cells are affected by antiresorptive therapy. We also discussed that it is not possible to directly compare her previous bone mineral density test results performed in [facility] in February 2019 with her current test results given these are on different machines and that slight differences in calibration might makesignificant differences in density assessment. At present, there is no definitive indication for initiation of pharmacologic therapy. We discussed that eventually she will likely be a good candidate for antiresorptive therapy to limit her risk for progressive bone loss and future fractures. She does note that at some point she may need a left kneereplacement. We discussed that in that context, it may be reasonable to consider medication such as alendronate 70 mg provided once weekly in order to prevent further loss of her bone mass. Oral bisphosphonate therapy would then be provided for a 5 year course prior to consideration of a bisphosphonate holiday. If she were intolerant of oral bisphosphonate, then she would be a good candidate for intra venous zoledronic acid 5 mg provided once yearly for 3 years prior to consideration of bisphosphonate holiday. It would be reasonable to repeat bone mineral density testing in 2-3 years to evaluate for interval change if she does not begin pharmacologic therapy. If she does begin pharmacologic therapy, it wouldalso be reasonable to repeat bone mineral density testing in 2-3 years to evaluate for stability versus interval change. Ms. Pagan was understanding of, and in agreement with, all of the above plans. Total time 60 minutes. Return Date: 2 years Telehealth: Either Return to: Self or [facility]ROS Orders mail in: Patient preference Medications: None prescribed Refills requests: Self as needed documented in this encounter Plan of Treatment Not on filedocumented as of this encounter Visit Diagnoses Diagnosis Osteopenia - Primary Menopause documented in this encounter Care Teams Kennel Helper Relationship Specialty Start Date End Date Elsewhere, Pcp PCP - General Internal Medicine 01/27/22 documented as of this encounter
--- OUTSIDE RECORDS SUMMARY | 2022-08-22 14:59 | XMS_ITS | Encounter Summary ---
:1955 Author Organization [facility] Address [address] [place] [address] Care Team Providers Name Role Phone Unavailable Primary Care Provider Unavailable Encounter Details Date Type Department Care Team Description 05/19/2020 Hospital Encounter Department of Monica Holly Laboratory Medicine Azar Lerner M.D. Essential Primary and Pathology, [address] [place] [address] in [place], [place] [phone] [place] [address] [place], [place] (Work) [phone] Social History Tobacco Use Types Packs/Day Years Used Date Smoking Tobacco: Never Assessed Social Isolation Answer Date Recorded In a typical week, how many times do you talk on the Patient refused 01/27/2022 phone with family, friends, or neighbors? How often do you get together with friends or Patient refuse d 01/27/2022 relatives? How often do you attend temple or adventism services? Patien t refused 01/27/2022 Do you belong to any clubs or organizations such as Patient refused 01/27/2022 temple groups, unions, fraternal or athletic groups, or [...] minutes do you engage in exercise at [facility] 30 min 01/27/2022 level? Stress Answer Date [...] place to sleep or slept in a halfway (including now)? Sex Assigned at Date Recorded [...] encounter Procedures Procedure Name Priority Date/Time Associated Diagnosis Comme nts CREATININE WITH Routine 05/19/2020 2:25 PM Hypertension Result s for this EGFR, S/P CDT Essential Primary procedure are in the results section. documented in this encounter Results Creatinine with Estimated GFR (05/19/2020 2:25 PM [...] Organization Address City/State/ZIP Code Phon e Number [facility] - [address] [place], [place] [address] [facility] [place] [address] Laboratories-[facility] [address] documented in this encounter Visit Diagnoses Diagnosis Hypertension Essential Primary documented in this encounter
--- OUTSIDE RECORDS SUMMARY | 2022-08-22 14:59 | XMS_ITS | Encounter Summary ---
:1955 Author Organization [facility] Address [address] [place] [address] Care Team Providers Name Role Phone Elsewhere, Pcp Primary Care Provider Unavailable Reason for Referral Outpatient (Routine) - Closed Specialty Diagnoses / Procedures Referred By Contact Refer red To Contact Diagnoses Aneurysm Splenic Artery (HCC) Neftaly Raines P.A.-C. [place] Procedures US Abdomen Pelvis Vessels Limited Doppler [address] [place] [address] [phone] Referral ID Status Reason Start Date Expiration Date Visits Requ ested Visits Authorized [id number] Closed 06/08/2021 06/08/2022 1 1 Reason for Visit Outpatient (Routine) - Closed Specialty Diagnoses / Procedures Referred By Contact Refer red To Contact Diagnoses Aneurysm Splenic Artery (HCC) Neftaly Raines P.A.-C. [place] Procedures US Abdomen Pelvis Vessels Limited Doppler [address] [place] [address] [phone] Referral ID Status Reason Start Date Expiration Date Visits Requ ested Visits Authorized [id number] Closed 06/08/2021 06/08/2022 1 1 Encounter Details Date Type Department Care Team Description 07/19/2022 Hospital Encounter Department of Neftaly Raines Splenic Radiology, Neha Clemente P.A.-C. Artery (HCC) Building, in [address] [place] [address] [address] [facility] [address] [place], [place] [phone] (Work) [phone] Social History Tobacco Use Types Packs/Day Years Used Date Smoking Tobacco: Never Smokeless Tobacco: Never Social Isolation Answer Date Recorded In a typical week, how many times do you talk on the Patient refused 01/27/2022 phone with family, friends, or neighbors? How often do you get together with friends or Patient refuse d 01/27/2022 relatives? How often do you attend restorationism or bahai services? Lakishaen t refused 01/27/2022 Do you belong to any clubs or organizations such as Patient refused 01/27/2022 restorationism groups, unions, [employer] or athletic groups, or school groups? How [...] there a time when you were Patien dom refused 01/27/2022 not able to pay the [...] Date glucosamine sulfate Take 500 mg by mouth 0 (GLUCOSAMINE) 500 mg daily. capsule lisinopriL Take 20 mg by mouth 0 04/24/2020 (PRINIVIL,ZESTRIL) 20 mg daily. tablet loratadine (CLARITIN) 10 mg Take 10 mg by mouth 0 tablet daily. lysine 500 mg tablet Take 500 mg by mouth 0 daily. simvastatin (ZOCOR) 10 mg Take 10 mg by mouth 0 0 03/09/2021 tablet daily. documented as of this encounter Plan of [...] cm (previously 1.2 cm). Neftaly Raines P.A.-C. [facility] US PROCEDURES documented in this encounter Visit Diagnoses Diagnosis Aneurysm Splenic Artery (HCC) documented in this encounter Care Teams Business Transformation Consultant Relationship Specialty Start Date End Date Elsewhere, Pcp PCP - General Internal Medicine 01/27/22 documented as of this encounter
--- OUTSIDE RECORDS SUMMARY | 2022-08-22 14:59 | XMS_ITS | Encounter Summary ---
:1955 Author Organization [facility] Address [address] [place] [address] Care Team Providers Name Role Phone Elsewhere, Pcp Primary Care Provider Unavailable Reason for Visit Reason Comments Pre-visit Intake Encounter Details Date Type Department Care Team Description 01/27/2022 Clinical Communication Visit Review in Pr e-visit Intake [place], [place] 200 [place], [place] [address]255 Social History Tobacco Use Types Packs/Day Years Used Date Smoking Tobacco: Never Smokeless Tobacco: Never Social Isolation Answer Date Recorded In a typical week, how many times do you talk on the Patient refused 01/27/2022 phone with family, friends, or neighbors? How often do you get together with friends or Patient refuse d 01/27/2022 relatives? How often do you attend buddhist or uatsdin services? Patien t refused 01/27/2022 Do you [...] Diagnoses Not on filedocumented in this encounter Care Teams Basketball Scout Relationship Specialty Start Date End Date Elsewhere, Pcp PCP - General Internal Medicine 01/27/22 documented as of this encounter
--- OUTSIDE RECORDS SUMMARY | 2022-08-22 14:59 | XMS_ITS | Encounter Summary ---
:1955 Author Organization [facility] Address [address] [place] [address] Care Team Providers Name Role Phone Unavailable Primary Care Provider Unavailable Reason for Referral Outpatient (Routine) - Closed Specialty Diagnoses / Procedures Referred By Contact Refer red To Contact Diagnoses Osteoporosis Milton Pace M.D., [facility] Procedures BMD Bone Density Spine Hips Ph.D. [address] [place] [phone] Referral ID Status Reason Start Date Expiration Date Visits Requ ested Visits Authorized [id number] Closed 01/06/2022 01/06/2023 1 1 Reason for Visit Outpatient (Routine) - Closed Specialty Diagnoses / Procedures Referred By Contact Refer red To Contact Diagnoses Osteoporosis Milton Pace M.D., [facility] Procedures BMD Bone Density Spine Hips Ph.D. [address] [place] [phone] Referral ID Status Reason Start Date Expiration Date Visits Requ ested Visits Authorized [id number] Closed 01/06/2022 01/06/2023 1 1 Encounter Details Date Type Department Care Team Description 01/26/2022 Hospital Encounter Department of Milton Pace, Ost eoporosis RadiologyNeha M.D., Ph.D. [facility], in [address] [place] [phone] [place], [place] [phone] (Wo rk) [phone] Social History Tobacco Use Types Packs/Day Years Used Date Smoking Tobacco: Never Assessed Social Isolation Answer Date Recorded In a typical week, how many times do you talk on the Patient refused 01/27/2022 phone with family, friends, or neighbors? How often do you get together with friends or Patient refuse d 01/27/2022 relatives? How often do you attend roman catholic or yazdanism services? Patien t refused 01/27/2022 Do you belong to any clubs or organizations such as Patient refused 01/27/2022 roman catholic groups, unions, fraternal or athletic groups, or [...] place to sleep or slept in a [place] [facility] [place] facility (including now)? Education Answer Date Recorded What [...] Procedure Name Priority Date/Time Associated Comments Diagnosis BMD BONE DENSITY RAD - Routine 01/26/2022 1:54 Osteoporosis Results for this SPINE HIPS (most inpatients PM CDT procedure a re in and all the results outpatients) section. documented in this encounter Results BMD Bone Density Spine Hips (01/26/2022 1:54 PM CDT) Anatomical Region Laterality Modality Hip, Lumbar Spine, Nuclear Medicine RST LOS, N/A Radiographic Imaging Musculoskeletal ARZ LOS, Muskuloskeletal FLA LOS Specimen (Source) Anatomical Collection Method Collection Time Re ceived Time Location / / Volume Laterality 01/26/2022 2:14 PM CDT Impressions 01/26/2022 2:15 PM CDT Low bone density (Osteopenia) AP Spine (region: L1-L4) Low bone density (Osteopenia) DualFemur (region: Neck Left) ?? Narrative 01/26/2022 2:15 PM CDT EXAM: ??BMD BONE DENSITY SPINE HIPS Bone Mineral Density (BMD) analysis perf ormed on [facility] with serial number [id number]. ? FINDINGS: Left Hip: Femur Neck: BMD = 0.747 g/cm2 T-score = -2.1 ?Z-score = -0.8 Total Hip: BMD = 0.799 g/cm2 T-score = -1.7 ?Z-score = -0.6 Right Hip: Femur Neck: BMD = 0.813 g/cm2 T-score = -1.6 ?? Z-score = -0.3 Total Hip: BMD = 0.862 g/cm2 T-score = -1.2 ?Z-score = -0.1 Lumbar Spine: L1: BMD = 0.927 g/cm2 L2: BMD = 0.960 g/cm2 L3: BMD = 0.991 g/cm2 L4: BMD = 0.886 g/cm2 Total Lumbar Spine (L1-L4): BMD = 0.941 g/cm2 T-score = -2.1 ?Z-score = -0.8 ? Trabecular Bone Score: L1-L4: TBS = 1.282 < 1.23: low 1.23 -1.31: borderline ?? > 1.31: normal ?? A low TBS has been associated with incre ased risk of fractures in certain populations. TBS should not be used alone to determine treatment recommendations. It can be used in conjunction with BMD and FRAX to inform management. Please note: A more comprehensive DXA re port, including images and graphs, is available in [employer]. In the absence of other causes of low BM D or demonstrated skeletal fragility, osteoporosis may be diagnosed in post-menopausal women and m en at or above age 50 when the T-score is at or below -2.5 as defined by the WHO. Low bone density is present at T-scores between -1 and - 2.5. The diagnosis in pre-menopausal women and men < age 50 ca n be based on low bone density or evidence of skeletal fragility in the appropriate clinical se tting. Based on the bone density results, and o n the patient's answers to the Fracture Risk Assessment questionnaire (please refer to appropria te image stored in the BMD study in [employer]), the calculated ten year probability of fracture is: FRAX Risk Factors: None FRAX (10 yr probability) adjusted for TB S Major Osteoporotic Fracture: ??12.1 % Hip Fracture: ?2.2 % ? Degenerative changes are present which m ay spuriously elevate the spine BMD measurement. Procedure Note Johnna Livingston M.D. - 01/26/2022Formatt ing of this note might be different from the original. EXAM: BMD BONE DENSITY SPINE HIPS Bone Mineral Density (BMD) analysis perf ormed on [employer] with serial number [id number]. FINDINGS: Left Hip: Femur Neck: BMD = 0.747 g/cm2 T-score = -2.1 Z-score = -0.8 Total Hip: BMD = 0.799 g/cm2 T-score = -1.7 Z-score = -0.6 Right Hip: Femur Neck: BMD = 0.813 g/cm2 T-score = -1.6 Z-score = -0.3 Total Hip: BMD = 0.862 g/cm2 T-score = -1.2 Z-score = -0.1 Lumbar Spine: L1: BMD = 0.927 g/cm2 L2: BMD = 0.960 g/cm2 L3: BMD = 0.991 g/cm2 L4: BMD = 0.886 g/cm2 Total Lumbar Spine (L1-L4): BMD = 0.941 g/cm2 T-score = -2.1 Z-score = -0.8 Trabecular Bone Score: L1-L4: TBS = 1.282 < 1.23: low 1.23 -1.31: borderline > 1.31: normal A low TBS has been associated with incre ased risk of fractures in certain populations. TBS should not be used alone to determine treatment recommendations. It can be used in conjunction with BMD and FRAX to inform management. Please note: A more comprehensive DXA re port, including images and graphs, is available in [employer]. In the absence of other causes of low BM D or demonstrated skeletal fragility, osteoporosis may be diagnosed in post-menopausal women and m en at or above age 50 when the T-score is at or below -2.5 as defined by the WHO. Low bone density is present at T-scores between -1 and - 2.5. The diagnosis in pre-menopausal women and men < age 50 ca n be based on low bone density or evidence of skeletal fragility in the appropriate clinical se tting. Based on the bone density results, and o n the patient's answers to the Fracture Risk Assessment questionnaire (please refer to appropria te image stored in the BMD study in [employer]), the calculated ten year probability of fracture is: FRAX Risk Factors: None FRAX (10 yr probability) adjusted for TB S Major Osteoporotic Fracture: 12.1 % Hip Fracture: 2.2 % Degenerative changes are present which m ay spuriously elevate the spine BMD measurement. IMPRESSION: Low bone density (Osteopenia) AP Spine ( region: L1-L4) Low bone density (Osteopenia) DualFemur (region: Neck Left) Milton Pace M.D., Ph.D. IMG DXA PROCEDURES documented in this encounter Visit Diagnoses Diagnosis Osteoporosis documented in this encounter
--- OUTSIDE RECORDS SUMMARY | 2022-08-22 14:59 | XMS_ITS | Encounter Summary ---
:1955 Author Organization [facility] Address [address] [place] [address] Care Team Providers Name Role Phone Unavailable Primary Care Provider Unavailable Reason for Visit Reason Comments Return Visit Encounter Details Date Type Department Care Team Description 04/29/2021 Clinical Communication [facility], Return Visit Medicine in [place], Alfred Cheng [place] [address] [facility] [address] [place] [phone] Social History Tobacco Use Types Packs/Day Years Used Date Smoking Tobacco: Never Assessed Social Isolation Answer Date Recorded In a typical week, how many times do you talk on the Patient refused 01/27/2022 phone with family, friends, or neighbors? How often do you get together with friends or Patient refuse d 01/27/2022 relatives? How often do you attend caodaism or uatsdin services? Patien t refused 01/27/2022 [...] place to sleep or slept in a alf (including now)? Education Answer Date Recorded What is the highest level of school Bachelor's degree (e.g., BA, AB, 05/26/2020 you have completed or the highest BS) degree you have received? Sex Assigned at Date Recorded Female 01/27/2022 2:09 PM CDT documented as of this encounter Miscellaneous Notes Telephone Encounter - Azar Holly M.D. - 04/29/2021 2:58 PM CDT Orders sent. Telephone Encounter - Yvette Teague - 04/29/2021 9:[address] Holly, MESSAGE NOTE Name and relationship to the patient: Patient Last appointment date: 05/26/2020 Appointment/Visit Type/Schedule Procedure: Appts/Labs/Images requested: RTN - with NPPA? and US Additional comments: Per your note from 05/26/2020 please order testing and return. PLAN 1. I would recommend a yearly ultrasound examination for surveillance of the splenic artery aneurysm. 2. It would be reasonable to consider placing her on a statin drug as discussed above. Requested Patient Response: Requested Patient Response: Telephone Call: # PASS: Call [phone] Thanks! documented in this encounter Plan of Treatment Not on filedocumented as of this encounter Visit Diagnoses Not on filedocumented in this encounter
--- OUTSIDE RECORDS SUMMARY | 2022-08-22 14:59 | XMS_ITS | Encounter Summary ---
:1955 Author Organization [facility] Address [address] [place] [address] Care Team Providers Name Role Phone Unavailable Primary Care Provider Unavailable Reason for Referral Outpatient (Routine) - Closed Specialty Diagnoses / Procedures Referred By Contact Refer red To Contact Diagnoses Osteoporosis Milton Pace M.D., [facility] Procedures BMD Bone Density Spine Hips Ph.D. [address] [place] [address] Referral ID Status Reason Start Date Expiration Date Visits Requ ested Visits Authorized [id number] Closed 01/06/2022 01/06/2023 1 1 Reason for Visit Reason Comments Pre-visit Testing Orders Encounter Details Date Type Department Care Team Description 01/06/2022 Clinical Division of Milton Pace Pre-visit Varsha [facility] Endocrinology percious Tapia M.D., Ph.D. Orders [place], [place] [address] [place] [address] [address] [place] [address] [phone] Social History Tobacco Use Types Packs/Day Years Used Date Smoking Tobacco: Never Assessed Social Isolation Answer Date Recorded In a typical week, how many times do you talk on the Patient refused 01/27/2022 phone with family, friends, or neighbors? How often do you get together with friends or Patient refuse d 01/27/2022 relatives? How often do you attend amish or mandaeism services? Юлия tapia refused 01/27/2022 Do you belong to any clubs or organizations such as Patient refused 01/27/2022 amish groups, unions, fraternal or athletic groups, or [...] place to sleep or slept in a long-term (including now)? Education Answer Date Recorded What is the highest level of school Bachelor's degree (e.g., BA, AB, 05/26/2020 you have completed or the highest BS) degree you have received? Sex Assigned at Date Recorded Female 01/27/2022 2:09 PM CDT documented as of this encounter Miscellaneous Notes Telephone Encounter - Vincent Barrington W - 01/06/2022 10:24 AM CDT Caller: Patient Last appt date: N/A Last provider seen: N/A Diagnosis: N/A Follow up instructions from last clinical note: N/A Calendar options/suggestions: New patient scheduled to see you 01/31/22 Action needed: Patient last had a bone density scan in 2019. She will be bringing any imaging and reports she has to the appt. She is not currently on any bone medications. Would you like to place orders for testing before the visit? Orders pended for bone density, please review. Thank you, Jin SAHA Instructions: Call pt to schedule testing if ordered documented in this encounter Plan of Treatment Not on filedocumented as of this encounter Results BMD Bone Density Spine [...] Mineral Density (BMD) analysis perf ormed on [employer] with serial number [id number]. ? FINDINGS: Left Hip: Femur Neck: BMD [...] including images and graphs, is available in [employer]. In the absence of other causes of [...] image stored in the BMD study in [employer]), the calculated ten year probability of fracture [...] Mineral Density (BMD) analysis perf ormed on [employer] with serial number [id number]. FINDINGS: Left Hip: Femur Neck: BMD = [...] including images and graphs, is available in [employer]. In the absence of other causes of [...] in this encounter Visit Diagnoses Diagnosis Osteoporosis - Primary Osteoporosis documented in this encounter
--- OUTSIDE RECORDS SUMMARY | 2022-08-22 14:59 | XMS_ITS | Encounter Summary ---
:1955 Author Organization [facility] Address [address] [place] [address] Care Team Providers Name Role Phone Unavailable Primary Care Provider Unavailable Reason for Visit Outpatient (Routine) - Closed Specialty Diagnoses / Procedures Referred By Contact Refer red To Contact Vascular Medicine Diagnoses Aneurysm Splenic Artery (HCC) Azar Holly [place] M.D. [address] [place] [address] Referral ID Status Reason Start Date Expiration Date Visits Requ ested Visits Authorized [id number] Closed 05/19/2020 05/19/2021 1 1 Encounter Details Date Type Department Care Team Description 05/26/2020 Office Visit Department of Vascular Sunshine Holly Splenic Artery Medicine in [facility] Alfred Cheng (HCC) [address] [place] [phone] [phone] Social History Tobacco Use Types Packs/Day Years Used Date Smoking Tobacco: Never Assessed Social Isolation Answer Date Recorded In a typical week, how many times do you talk on the Patient refused 01/27/2022 phone with family, friends, or neighbors? How often do you get together with friends or Patient refuse d 01/27/2022 relatives? How often do you attend scientology or mandaen services? Patien t refused 01/27/2022 Do you belong to any clubs or organizations such as Patient refused 01/27/2022 scientology groups, unions, fraternal or athletic groups, or [...] PM CDT documented as of this encounter Progress Notes Azar Holly M.D. - 05/26/2020 3:45 PM CDT SUBJECTIVE Ms. Pagan is a 64 y.o. female who is returning today for review of her imaging studies. We talked about her splenic artery aneurysm. She asked about risk factors. She does have the hypertension, but she does not have a tobacco use history, hyperlipidemia, or diabetes. She did have lung scarring that showed up on the CTA study, but no history of pneumonia. She is asymptomatic from a pulmonary standpoint. OBJECTIVE VITALS There were no vitals taken for this visit. PHYSICAL EXAMINATION There is no height or weight on file to calculate BMI. DIAGNOSTIC REVIEW Her serum creatinine was 0.96 milligrams/deciliter. Her CTA study was compared to a CT from April 29 of last year and that showed an unchanged 1.2 x 1.2 centimeter distal splenic artery aneurysm. Incidentally noted was subsegmental scarring in both lower lobes of the lungs and an unchanged 8 millimeter hypoattenuating lesion in the left lobe of the liver which was too small to characterize. Other findings are as per the report. An ultrasound of the abdomen and pelvis showed a fusiform aneurysm of the mid/distal splenic artery measuring approximately 1.2 centimeters in size and allowing for differences in technique, this appeared unchanged from the prior CTA study. ASSESSMENT / PLAN ASSESSMENT #1 Aneurysm Splenic Artery (HCC) has a 1.2 centimeters splenic artery aneurysm which is adequately imaged on an ultrasound study. She has no other aneurysms and nothing on the CT scan to suggest Fibromuscular Dysplasia or an underlying genetic abnormality. This appears to be an isolated splenic artery aneurysm and therefore I would suggest yearly surveillance with an ultrasound. She does appear to have a benign liver lesionwithout change compared to last year. It would be reasonable to place her on a statin drug regardless of what her lipid values are as she does have an arterial aneurysm and she will talk to her primarycare physician about this. A target total cholesterol for her would be well under 200 milligrams/deci liter with a target LDL cholesterol of under 100 milligrams/deciliter. PLAN 1. I would recommend a yearly ultrasound examination for surveillance of the splenic artery aneurysm. 2. It would be reasonable to consider placing her on a statin drug as discussed above. Total time spent with patient: 25 minutes. Time spent in counseling and coordination of care: 15 minutes. Azar Holly M.D. documented in this encounter Plan of Treatment Not on filedocumented as of this encounter Visit Diagnoses Diagnosis Aneurysm Splenic Artery (HCC) documented in this encounter
== END 2022-08-22 08:38 | disposition home or self-care (01) ==
LOC: NFLDREF 14:09
PROVIDERS: PCP Internal Medicine; Visit Provider Internal Medicine
DX: E03.9 Hypothyroidism, unspecified (principal)
CPT/HCPCS: 84443

== ENCOUNTER 2022-11-01 15:50 | Outpatient (CLI) | payer MEDICARE, BC, SELFPAY ==
--- NOTE | 2022-11-01 16:00 | CRLHL7_ITS ---
For Patients: As a result of the Century Cures Act, medical imaging exams and procedure reports are released immediately into your electronic medical record. You may view this report before your referring provider. If you have questions, please contact your health care provider. Indication: Chronic sinusitis. Technique: Noncontrast axial CT of the paranasal sinuses with coronal reformats are provided. No comparisons. Findings: The visualized paranasal sinuses are clear. Left-sided lexie bullosa. The ostiomeatal complexes are patent bilaterally. The visualized intraorbital contents appear within normal limits. Impression: Unremarkable CT of the paranasal sinuses. Please note that all CT scans at this facility use dose modulation, iterative reconstruction, and/or weight-based dosing when appropriate to reduce radiation dose to as low as reasonably achievable. Dictated by Mathew Leon MD @ 11/01/2022 5:14:57 PM (Electronically Signed)
== END 2022-11-01 15:51 | disposition home or self-care (01) ==
PROVIDERS: PCP Internal Medicine; Visit Provider Otolaryngology
DX: J32.9 Chronic sinusitis, unspecified (principal)
CPT/HCPCS: 70486

== ENCOUNTER 2022-11-17 08:59 | Outpatient (CLI) | payer MEDICARE, BC, SELFPAY | END 2022-11-17 09:00 | disposition home or self-care (01) | LOC: NFLDREF 09:06 | PROVIDERS: PCP Internal Medicine; Visit Provider Internal Medicine | DX: E03.8 Other specified hypothyroidism (principal) | CPT/HCPCS: 84443 ==

== ENCOUNTER 2022-12-22 09:05 | Outpatient (CLI) | payer MEDICARE, BC, SELFPAY ==
--- NOTE | 2022-12-22 09:15 | CRLHL7_ITS ---
For Patients: As a result of the Cures Act, medical imaging exams and procedure reports are released immediately into your electronic medical record. You may view this report before your referring provider. If you have questions, please contact your health care provider. BILATERAL SCREENING MAMMOGRAM WITH COMPUTER-AIDED DETECTION AND TOMOSYNTHESIS TECHNIQUE: CC and MLO views were obtained. These mammographic images have been obtained using full-field digital technique. These mammographic images were interpreted with the benefit of computer-aided detection. Breast tomosynthesis was used in this interpretation. COMPARISON FILM: 12/20/21, 11/30/20, 11/11/19. FINDINGS: There are scattered areas of fibroglandular density. IMPRESSION: There is no radiographic evidence for malignancy. ASSESSMENT: BI-RADS Category 1: Negative RECOMMENDATION: Routine screening mammogram in 1 year. A lay language report of this examination will be provided to the patient. UMESH BLAKELY M.D. Diagnostic Radiologist [email or web address] Transcribed: 12/22/2022, 2:[address]/Dictated by: Umesh Blakely MD @ 12/22/2022 12:10:00 PM (Electronically Signed)
== END 2022-12-22 09:06 | disposition home or self-care (01) ==
LOC: MAMMO 09:06
PROVIDERS: PCP Internal Medicine; Visit Provider Internal Medicine
DX: Z12.31 Encounter for screening mammogram for malignant neoplasm of breast (principal)
CPT/HCPCS: 77063; 77067

== ENCOUNTER 2023-04-06 07:33 | Outpatient (CLI) | payer MEDICARE, BC, SELFPAY | END 2023-04-06 07:34 | disposition home or self-care (01) | LOC: NFLDREF 10:22 | PROVIDERS: PCP Internal Medicine; Referring Provider Internal Medicine; Visit Provider Internal Medicine | DX: I10 Essential (primary) hypertension (principal); E78.5 Hyperlipidemia, unspecified | CPT/HCPCS: 80048; 80061 ==

== ENCOUNTER 2023-04-14 11:04 | Day surgery (SDC) | payer MEDICARE, BC, SELFPAY ==
[2023-04-14] VITALS (13 sets, daily range): BP systolic 111–135; BP diastolic 62–87; PULSE 67–86; RESP 12–16; TEMP 36.4–36.7; O2SAT 96–99; BMI 29.4
[2023-04-14] MEDS: LACTATED RINGERS 1000 ML 1,000 ML 100 ML IV (11:20)
[2023-04-14] MEDS: SODIUM CHLORIDE 0.9 % (FLUSH) 10 ML SYRINGE IVF (12:11)
[2023-04-14] MEDS: OXYMETAZOLINE 0.05% NASAL SPRAY 2 SPRAY NOSTRIL-B (12:40)
[2023-04-14] MEDS: BUPIVACAINE 0.5%/EPINEPHRINE 0.9 MG (30.9 ML) INJECTION (13:02)
[2023-04-14] MEDS: OXYMETAZOLINE (AFRIN) SOAK 1 EACH TOPICAL (13:03)
[2023-04-14] MEDS: BUPIVACAINE 0.5 %/EPI 1:200K 30 ML INJECTION (13:03)
[2023-04-14] MEDS: MUPIROCIN 1 GM PACKET 1 APPLIC TOPICAL (13:03)
[2023-04-14] MEDS: COCAINE HCL 4 % 4 ML SOLUTION NOSTRIL-B (13:03)
--- NOTE | 2023-04-14 13:21 | W.ANESCHARGE ---
Anesthesia Charges Start Date/Time Anesthesia Start Date: 04/14/23 Anesthesia Start Time: 12:46 Stop Date/Time Anesthesia Stop Date: 04/14/23 Anesthesia Stop Time: 13:27
--- NOTE | 2023-04-14 14:08 | W.PM.ENTPROC ---
Procedure Note Date of procedure: 04/14/23 Procedure: Preoperative diagnosis nasal obstruction, nasal headache, deviated septum, left middle turbinate lexie bullosa, inferior turbinate hypertrophy bilateral Postoperative diagnosis same Procedure nasal septoplasty, endoscopic partial resection left middle turbinate lexie bullosa, submucous partial resection inferior turbinates bilateral Under general endotracheal anesthesia patient was prepped and draped in usual fashion the nose injected and decongested. Incision was made in the septal mucosa on the left side anterior to the deflection mucosa on either side of the deflection was elevated in a piece of bone and cartilage was resected trimmed and returned to intraseptal space. The lexie bullosa was incised along its inferolateral aspect to the hollow portion. The lexie bone was then infractured into the hollow portion in the turbinate crushed with the Seun forceps. A stab incision was made in the anterior of the right inferior turbinate a tunnel created with a Dave dissector. A conservative anterior submucous resection was performed the lexie bone was also outfractured. The Coblation was used to cauterize intramurally along the inferior 10%. This was repeated on the opposite side in identical fashion. Merocel packing soaked in Bactroban was placed on either side of the septum. The patient procedure well was taken recovery in satisfactory condition. Blood loss less than 25 mL. Surgeon: Jared Hoffman MD
[2023-04-14] MEDS: ACETAMINOPHEN 325 MG TABLET PO ×2 (14:17→14:21)
[2023-04-14] MEDS: IBUPROFEN 200 MG TABLET PO ×2 (14:22)
== END 2023-04-14 15:21 | disposition home or self-care (01) ==
LOC: OR 11:05
PROVIDERS: PCP Internal Medicine; Visit Provider Otolaryngology
PROC: (CPT 31231; principal; 2023-04-14 12:15)
DX: J34.2 Deviated nasal septum (principal); J34.3 Hypertrophy of nasal turbinates; R51.9 Headache, unspecified; J34.89 Other specified disorders of nose and nasal sinuses
CPT/HCPCS: 30520; 30140; 31240; 00160; A9270; J0330; J1100; J2371; J2405; J2704; J3010; J3490; J7120

== ENCOUNTER 2023-12-26 13:32 | Outpatient (CLI) | payer MEDICARE, BC, SELFPAY ==
--- NOTE | 2023-12-26 13:40 | MM_ITS ---
Patient: YAO ALBARADO Facility:?[facility] Patient ID:?[id number] Site Patient ID:?[id number]. Site :?[id number] Study:?XRay-Breast Bilateral 3D W/CAD-12/26/2023 2:07:05 PM Ordering Physician:Susi Younger Final Report: BILATERAL SCREENING MAMMOGRAM WITH COMPUTER-AIDED DETECTION AND TOMOSYNTHESIS TECHNIQUE: CC and MLO views were obtained. These mammographic images have been obtained using full-field digital technique. These mammographic images were interpreted with the benefit of computer-aided detection. Breast Tomosynthesis was used in this interpretation. COMPARISON FILM: 12/22/22, 12/20/21, 11/30/20. FINDINGS: There are scattered areas of fibroglandular density IMPRESSION: There is no radiographic evidence for malignancy. ASSESSMENT: BI-RADS Category 1: Negative RECOMMENDATION: Routine screening mammogram in 1 year. A lay language report of this examination will be provided to the patient. Umesh Villegas M.D. Diagnostic Radiologist [email or web address] LEVY/bill D& Transcribed: 9:30 p.m. KOURTNEY/Dictated by: Umesh Villegas MD @ 12/27/2023 12:20:00 PM Signed by:Rodriguez Villegas MD @12/28/2023 5:28:11 AM (Electronic Signature)
== END 2023-12-26 13:33 | disposition home or self-care (01) ==
PROVIDERS: PCP Internal Medicine; Visit Provider Internal Medicine
DX: Z12.31 Encounter for screening mammogram for malignant neoplasm of breast (principal)
CPT/HCPCS: 77063; 77067

== ENCOUNTER 2024-01-03 13:00 | Outpatient (RCR) | payer MEDICARE, BC, SELFPAY ==
--- NOTE | 2023-12-27 08:21 | URNOTE ---
Prior auth is not required for Zoledronic Acid (J3489). Pt has medicare/BC Supplement. Services are based on medical necessity and follow medicare guidelines.
[2024-01-01 15:10] LABS: Est. Creatinine Clearance* 45.85; Estimated Glomerular Filt Rate 61 ml/min
[2024-01-01 15:11] LABS: Calcium* 9.5 mg/dL (8.4-10.6)
[2024-01-03 12:49] VITALS: BP 120/74; PULSE 82; RESP 16; TEMP 36.2; O2SAT 97
== END 2024-06-29 23:59 | disposition home or self-care (01) ==
LOC: CCIC 13:00
PROVIDERS: PCP Internal Medicine; Visit Provider Internal Medicine Hematology & Oncology
DX: M85.80 Other specified disorders of bone density and structure, unspecified site (principal)
CPT/HCPCS: 36415; 82310; 82565; 96374; J3489

== ENCOUNTER 2024-05-20 07:57 | Outpatient (CLI) | payer MEDICARE, BC, SELFPAY ==
--- OUTSIDE RECORDS SUMMARY | 2024-05-23 13:01 | XMS_ITS | Clinical Summary ---
Author Organization [facility] Address [place], [place] [address] Care Team Providers Care Decorating Machine Tender Name Role Phone Susi Hazel MD Primary Care Provider [phone] Allergies No known active allergies Medications Medication Sig Dispensed Refills Start Date End Date Status lisinopriL (PRINIVIL; ZESTRIL) 20 mg tablet Take 1 Tablet by mouth once daily. 01/26/2023 Active simvastatin (ZOCOR) 10 mg tablet Take 1 Tablet by mouth once daily. 01/26/2023 Active alendronate (FOSAMAX) 35 mg tablet Take 1 Tablet by mouth once a week in the morning. 02/06/2023 Active celecoxib (CELEBREX) 200 mg capsule TAKE 1 CAPSULE BY MOUTH TWICE A DAY NEEDED FOR PAIN 02/01/2023 Active glucosamine 500 mg capsule Take 500 mg by mouth. Active levothyroxine (SYNTHROID) 25 mcg tablet Take 1 Tablet by mouth once daily. 11/17/2022 Active levocetirizine (Xyzal) 5 mg tab tablet Take 1 Tablet (5 mg) by mouth once daily in the evening. 0 02/14/2023 Active fluticasone (50 mcg per actuation) nasal solution (FLONASE) Inhale 1 Mineral into affected nostril(s) once daily. 16 g 02/14/2023 Active Social History Tobacco Use Types Packs/Day Years Used Date Smoking Tobacco: Never Smokeless Tobacco: Never Tobacco Cessation:Counseling Given: Yes Sex and Gender Information Value Date Recorded Sex Assigned at Not on file Gender Identity Not on file Sexual Orientation Not on file Obstetrics History Last Filed Vital Signs Vital Sign Reading Time Taken Comments Blood Pressure 110/70 02/14/2023 3:39 PM CDT tow er Pulse 71 02/14/2023 3:39 PM CDT Temperature - - Respiratory Rate - - Oxygen Saturation 96% 02/14/2023 3:39 PM CDT Inhaled Oxygen Concentration - - Weight 79.4 kg (175 lb) 02/14/2023 3:39 PM CDT Height - - Body Mass Index - - Plan of Treatment Health Maintenance Due Date Last Done Comments Tdap 1965 Depression screening for age 12+ 1966 BMI (ht and wt on same day) for age 18+ 1972 Hepatitis C screening for age 18-79 1972 Tetanus booster 1974 Colonoscopy through age 75 1999 Lipids for age 45-75 1999 Mammogram for age 45-75 1999 Zoster (shingles) series for age 50+ (1 of 2) 06/26/20 04 DEXA/DXA scan for age 65+ 2019 Medicare Wellness for age 65+ 2019 Pneumococcal series for age 65+ (1 of 1 - PCV) 019 COVID-19 vaccine series ( - 2022- season) 3 Influenza for age 65+ 06/09/2024 Care Teams Decorating Machine Tender Relationship Specialty Start Date End Date Susi Hazel MD [address] [place] [address] PCP - General Internal Medicine 01/10/23
--- OUTSIDE RECORDS SUMMARY | 2024-05-23 13:02 | XMS_ITS | Referral Summary ---
Author Organization [facility] Address [address] [place] [address] Care Team Providers Care Centerpuncher Name Role Phone Elsewhere, Pcp Primary Care Provider Unavailabl e Source Comments Patient records contain information from all sites at [facility]. For routine questions regarding patient records, call [phone] during business hours, M-F 8:00 AM - 5:00 PM Central Time. Record requests for emergency care only can be directed to [phone] at any time.[facility] Encounters Date Type Department Care Team Description 05/16/2024 4:00 PM CDT Office Visit Department of Vascular Medicine in [place], [place] [address] [place] [address] Neftaly Raines P.A.-C. Aneurysm Splenic Artery (HCC) (Primary Dx) 05/16/2024 1:48 PM CDT - 05/16/2024 11:59 PM CDT Hospital Encounter Department of Radiology, [facility], in [place], [place] [address] [place] [address] Neftaly Raines P.A.-C. Aneurysm Splenic Artery (HCC) Discharge Disposition: Home or Self Care from Last 3 Months Allergies Active Allergy Reactions Criticality Noted Date Comments Pollen Extracts Cough 05/19/2020 Medications Medication Sig Dispensed Refills Start Date End Date Status lisinopriL (PRINIVIL,ZESTRIL ) 20 mg tablet Take 20 mg by mouth daily. 04/24/2020 Active lysine 500 mg tablet Take 500 mg by mouth daily. Active simvastatin (ZOCOR) 10 mg tablet Take 10 mg by mouth daily. 03/09/2021 Active levocetirizine (Xyzal) 5 mg tablet Take 5 mg by mouth daily. 02/14/2023 Active fluticasone propionate (Flonase) 50 mcg/actuation nasal spray Administer 1 spray into nostril(s) daily. 02/14/2023 Active celecoxib (CeleBREX) 200 mg capsule Take 1 capsule by mouth as needed. 02/01/2023 Active CALCIUM ACETATE ORAL Take 1 capsule by mouth daily. Active loratadine (CLARITIN) 10 mg tablet Take 10 mg by mouth daily. 05/16/2024 Discontinued (Therapy completed) glucosamine sulfate (GLUCOSAMINE) 500 mg capsule Take 500 mg by mouth daily. 05/16/2024 Discontinued (Therapy completed) Active Problems Problem Noted Date Diagnosed Date Aneurysm Splenic Artery 07/19/2022 Osteopenia 01/31/2022 Menopause 01/31/2022 Social History Tobacco Use Types Packs/Day Years Used Date Smoking Tobacco: Never Passive Smoke Exposure: Never Smokeless Tobacco: Never Tobacco Cessation:Counseling Given: Not Answered [facility] Agilysities Answer Date Recorded In the past 12 months has [employer], [employer], oil, or water [employer] threatened to shut off services in your home? No 05/12/2024 Humiliation, Afraid, Rape, and Kick questionnair e Answer Date Recorded Fear of Current or Ex-Partner Not on file Emotionally Abused Not on file 01/27/2022 Physically Abused Not on file 01/27/2022 Within the last year, have y ou been raped or forced to have any kind of sexual activity by your partner or ex-partner? Patient declined 01/27/2022 Social Connection and Isolation Panel [NHANES] A nswer Date Recorded In a typical week, how many times do you talk on the phone with family, friends, or neighbors? Patient declined 01/27/2022 How often do you get togethe r with friends or relatives? Patient declined 01/27/2022 How often do you attend islam or alevism serv ices? Patient declined 01/27/2022 Do you belong to any clubs o r organizations such as islam groups, unions, fraternal or athletic groups, or school groups? Patient declined 01/27/2022 How often do you attend meet ings of the clubs or organizations you belong to? Patient declined 01/27/2022 Are you , , di vorced, , never , or living with a partner? 01/27/2022 AUDIT-C Answer Date Recorded Q1: How often do you have a drink containing alc ohol? Patient declined 01/27/2022 Average Number of Drinks Not on file 022 Frequency of Binge Drinking Not on file 01/08 Overall Financial Resource Strain (CARDIA) Answe r Date Recorded How hard is it for you to pa y for the very basics like food, housing, medical care, and heating? Patient declined 01/27/2022 [facility] - Occupational Stress Questionnaire Answer Date Recorded Do you feel stress - tense, restless, nervous, or anxious, or unable to sleep at night because your mind is troubled all the time - these days? To some extent 01/27/2022 Exercise Vital Sign Answer Date Recorde d On average, how many days pe r week do you engage in moderate to strenuous exercise (like a brisk walk)? Patient declined On average, how many minutes do you engage in exercise at this level? Patient declined 05/12/2024 Hunger Vital Sign Answer Date Recorded Within the past 12 months, y ou worried that your food would run out before you got the money to buy more. Never true 05/12/20 Within the past 12 months, t he food you bought just didn't last and you didn't have money to get more. Never true 05/12/2024 PRAPARE - Transportation Answer Date Re corded In the past 12 months, has l ack of transportation kept you from medical appointments or from getting medications? No 01/2024 In the past 12 months, has l ack of transportation kept you from meetings, work, or from getting things needed for daily living? No 05/12/2024 Nutrition Answer Date Recorded On average, how many serving s of fruits and vegetables do you eat per day (serving size is equal to 1 cup or approximately the size of a tennis ball)? 0-2 05/12/2024 Dental Answer Date Recorded Dental: Regular Dentist Yes 05/12/20 Employment Answer Date Recorded Employment status Retired 05/12/2024 Housing Stability Answer Date Recorded What is your living situation today? I have a [facility] place to live 05/12/2024 Education Answer Date Recorded What is the highest level of school you have completed or the highest degree you have received? Bachelor's degree (e.g., BA, AB, BS) 05/26/2020 Sex and Gender Information Value Date Recorded Sex Assigned at Female 01/27/2022 2:09 PM CDT Gender Identity Female 01/27/2022 2:09 PM CDT Sexual Orientation Straight 01/27/2022 2: 09 PM CDT Last Filed Vital Signs Vital Sign Reading Time Taken Comments Blood Pressure 127/80 05/16/2024 3:37 PM CDT Pulse 70 05/16/2024 3:37 PM CDT Temperature - - Respiratory Rate - - Oxygen Saturation - - Inhaled Oxygen Concentration - - Weight 77.7 kg (171 lb 4.8 oz) 05/16/2024 3:34 P M CDT Height 164.9 cm (5' 4.92) 05/16/2024 3:34 PM CD T Body Mass Index 28.57 05/16/2024 3:34 PM CDT Plan of Treatment Not on file Procedures Procedure Name Priority Date/Time Associated Diagnosis Comments US ABDOMEN PELVIS VESSELS DOPPLER RAD - Routine (most inpatients and all outpatients) 05/16/2024 2:08 PM CDT Aneurysm Splenic Artery (HCC) CREATININE WITH EGFR, S/P Routine 05/19/2020 2:25 PM CDT Hypertension Essential Primary from Last 3 Months or Most Recently Relevant to Health Maintenance Results * US Abdomen Pelvis Vessels Doppler (05/16/2024 2:08 PM CDT) Anatomical Region Laterality Modality Abdomen, Pelvis, Ultrasound RST LOS, Ultrasound ARZ LOS, Ultrasound FLA LOS N/A Ultrasound Impressions 05/16/2024 2:16 PM CDT Unchanged size of the the mid to distal splenic artery aneurysm, which measures up to 1.3 cm in diameter. Narrative 05/16/2024 2:16 PM CDT EXAM: US ABDOMEN PELVIS VESSELS DOPPLER Exam performed with color and spectral Doppler analysis. COMPARISON: 07/19/2022. FINDINGS: Again seen is an aneurysmal dilatation of the mid to distal splenic artery, which measures up to 1.3 cm in diameter, without significant change since the prior examination. The splenic artery is patent where seen. Incidentally noted are calcified splenic granulomas. Procedure Note Vance Ruvalcaba M.D. - 05/16/2024 EXAM: US ABDOMEN PELVIS VESSELS DOPPLER Exam performed with color and spectral Doppler analysis. COMPARISON: 07/19/2022. FINDINGS: Again seen is an aneurysmal dilatation of the mid to distalsplenic artery, which measures up to 1.3 cm in diameter, withoutsignificant change since the prior examination. The splenic artery ispatent where seen. Incidentally noted are calcified splenic granulomas. IMPRESSION: Unchanged size of the the mid to distal splenic artery aneurysm, whichmeasures up to 1.3 cm in diameter. Neftaly Raines P.A.-C. IMG US PROCEDURE S * Creatinine with Estimated GFR (05/19/2020 2:25 PM CDT) Creatinine 0.96 0.59 - 1.04 mg/dL 05/19/2020 3:19 PM CDT DTL eGFR-Non Black/ 62 >=60 mL/min/BSA 05/19/2020 3:19 PM CDT DTL Comment: ----ADDITIONAL INFORMATION---- Estimated GFR calculated using the 2009 CKD_EPI creatinine equation. eGFR-Black/Afric an Andorran 72 >=60 mL/min/BSA 05/19/2020 3:19 PM CDT DTL Comment: ----ADDITIONAL INFORMATION---- Estimated GFR calculated using the 2009 CKD_EPI creatinine equation. Blood (Blood, Venous) 05/19/2020 2:25 PM CDT 05/19/2020 3:03 PM CDT Azar Holly M.D. LAB BLOOD ADD-ON [facility] [address] [place] [address], [facility] DTL [facility] [address] [place] [address] from Last 3 Months or Most Recently Relevant to Health Maintenance Care Teams Centerpuncher Relationship Specialty Start Date End Date Elsewhere, Pcp PCP - General Internal Medicine 01/27/22
--- OUTSIDE RECORDS SUMMARY | 2024-05-23 13:02 | XMS_ITS ---
Author Organization [facility] Address [address] [place] [address] Care Team Providers Care Highway Maintenance Crew Worker Name Role Phone Unavailable Unavailable Unavailable Surgery Details Not on file Complications Check Surgery Details section. Procedure Estimated Blood Loss Check Surgery Details section. Procedure Findings Check Surgery Details section. Procedure Specimens Taken Check Surgery Details section.
--- OUTSIDE RECORDS SUMMARY | 2024-05-23 13:02 | XMS_ITS | Clinical Summary ---
Author Organization [facility] Address [address] [place] [address] Care Team Providers Care Silver Buffer Name Role Phone Elsewhere, Pcp Primary Care Provider Unavailabl e Source Comments Patient records contain information from all sites at [facility]. For routine questions regarding patient records, call [phone] during business hours, M-F 8:00 AM - 5:00 PM Central Time. Record requests for emergency care only can be directed to [phone] at any time.[facility] Allergies Active Allergy Reactions Criticality Noted Date [...] Osteopenia 01/31/2022 Menopause 01/31/2022 Encounters Date Type Department Care Team Description 05/16/2024 4:00 PM CDT Office Visit Department of Vascular Medicine in [place], [place] [address] [place] [address] Neftaly Raines P.A.-C. Aneurysm Splenic Artery (HCC) (Primary Dx) 05/16/2024 1:48 PM CDT - 05/16/2024 11:59 PM CDT Hospital Encounter Department of Radiology, [facility], in [place], [place] [address] [place] [address] Neftaly Raines P.A.-C. Aneurysm Splenic Artery (HCC) Discharge Disposition: Home or Self Care from Last 3 Months Social History Tobacco Use Types Packs/Day Years Used Date Smoking Tobacco: Never Passive Smoke Exposure: Never Smokeless Tobacco: Never Tobacco Cessation:Counseling Given: Not Answered [facility] Utilities Answer Date Recorded In the past 12 months has [employer], [employer], oil, or water [employer] threatened to shut off services in your [...] declined 01/27/2022 How often do you attend confucianist or mormon serv ices? Patient declined 01/27/2022 Do you belong to any clubs o r organizations such as confucianist groups, unions, fraternal or athletic groups, [...] medical care, and heating? Patient declined 01/27/2022 [facility] - Occupational [...] your living situation today? I have a [facility] place to live 05/12/2024 Education Answer Date [...] 05/16/2024 3:34 PM CDT Plan of Treatment Health Maintenance Due Date Last Done Comments CT Colonography 1955 Cologuard 1955 Colonoscopy 1955 Colorectal Cancer Screening 1955 FIT 1955 Fasting Glucose for Diabetes Screening 1955 Hepatitis C Screening 1955 Mammogram 1955 Potassium Level 1955 Sodium Level 1955 DTaP,Tdap,and Td Vaccines (1 - Tdap) 11/19/2013 11/18/2013 Creatinine Level (Kidney Fun ction Test) 05/19/2021 05/19/2020 Depression Screening (Annual PHQ-2) 10/09/2023 Fall Risk Screen (Annual) 10/09/2023 COVID-19 Vaccine (2022-2 4 season) 2023 08/11/2023, 09/16/2022, 02/04/2022, Additional history exists Influenza Vaccine (#1) 2024 3, 08/05/2022, 08/03/2021, Additional history exists Zoster Vaccines Completed 08/18/2018, 06/09, 2014 Pneumococcal vaccine (65+ years) Completed 06/17/20, 12/16/2019 Bone Density Scan (Osteoporo sis Screen) Discontinued 01/26/2022 Procedures Procedure Name Priority Date/Time Associated Diagnosis [...] up to 1.3 cm in diameter. Neftaly AVINA US PROCEDURE S * Creatinine with Estimated GFR (05/19/2020 2:25 PM CDT) Creatinine 0.96 0.59 - 1.04 mg/dL 05/19/2020 3:19 PM CDT DTL eGFR-Non Black/ 62 >=60 mL/min/BSA 05/19/2020 3:19 PM CDT DTL Comment: ----ADDITIONAL INFORMATION---- Estimated GFR calculated using the 2009 CKD_EPI creatinine equation. eGFR-Black/Afric an Algerian 72 >=60 mL/min/BSA 05/19/2020 3:19 PM CDT DTL Comment: ----ADDITIONAL INFORMATION---- Estimated GFR calculated using the 2009 CKD_EPI creatinine equation. Blood (Blood, Venous) 05/19/2020 2:25 PM CDT 05/19/2020 3:03 PM CDT Azar Holly M.D. LAB BLOOD ADD-ON [facility] [address] [place] [address], [facility] [address] [place] [address] from Last 3 Months or Most Recently Relevant to Health Maintenance Care Teams Silver Buffer Relationship Specialty Start Date End Date Elsewhere, Pcp PCP - General Internal Medicine 01/27/22
--- OUTSIDE RECORDS SUMMARY | 2024-05-23 13:02 | XMS_ITS | Encounter Summary ---
Author Organization [facility] Address [address] [place] [id number] Care Team Providers Care National Sales Consultant Name Role Phone Elsewhere, Pcp Primary Care Provider Unavailabl e Reason for Referral * Outpatient (Routine) - Closed Specialty Diagnoses / Procedures Referred By Araceli fernandes Referred To Contact Diagnoses Aneurysm Splenic Artery (HCC) Procedures US Abdomen Pelvis Vessels Doppler Neftaly Raines P.A.-C. [address] [place] [address] [facility] Referral ID Status Reason Start Date Expiration Date Visits Re quested Visits Authorized [id number] Closed 06/16/2023 06/15/2024 1 1 Reason for Visit * Outpatient (Routine) - Closed Specialty Diagnoses / Procedures Referred By Araceli fernandes Referred To Contact Diagnoses Aneurysm Splenic Artery (HCC) Procedures US Abdomen Pelvis Vessels Doppler Neftaly Raines P.A.-Nancy [address] [place] [address] [facility] Referral ID Status Reason Start Date Expiration Date Visits Re quested Visits Authorized [id number] Closed 06/16/2023 06/15/2024 1 1 Encounter Details Date Type Department Care Team (Latest Contact Info) Description 05/16/2024 1:48 PM CDT - 05/16/2024 11:59 PM CDT Hospital Encounter Department of Radiology, [facility], in [place], [place] [address] [place] [address] Neftaly Raines P.A.-C. [address] [place] [address] Aneurysm Splenic Artery (HCC) Discharge Disposition: Home or Self Care Social History Tobacco Use Types Packs/Day Years Used Date Smoking Tobacco: Never Passive Smoke Exposure: Never Smokeless Tobacco: Never [facility] Utilities Answer Date Recorded In the past 12 months has th e electric, gas, oil, or water company threatened to shut off services in your [...] declined 01/27/2022 How often do you attend jainism or christian serv ices? Patient declined 01/27/2022 Do you belong to any clubs o r organizations such as jainism groups, unions, fraternal or athletic groups, or [...] medical care, and heating? Patient declined 01/27/2022 [facility] - Occupational Stress [...] your living situation today? I have a [facility] place to live 05/12/2024 Education Answer Date Recorded What is the highest level of school you have completed or the highest degree you have received? Bachelor's degree (e.g., BA, AB, BS) 05/26/2020 Sex and Gender Information Value Date Recorded Sex Assigned at Female 01/27/2022 2:09 PM CDT Gender Identity Female 01/27/2022 2:09 PM CDT Sexual Orientation Straight 01/27/2022 2: 09 PM CDT documented as of this encounter Medications at Time of Discharge Medication Sig Dispensed Refills Start Date End Date CALCIUM ACETATE ORAL Take 1 capsule by mouth daily. celecoxib (CeleBREX) 200 mg capsule Take 1 capsule by mouth as needed. 02/01/2023 fluticasone propionate (Flonase) 50 mcg/actuation nasal spray Administer 1 spray into nostril(s) daily. 02/14/2023 levocetirizine (Xyzal) 5 mg tablet Take 5 mg by mouth daily. 02/14/2023 lisinopriL (PRINIVIL,ZESTRIL) 20 mg tablet Take 20 mg by mouth daily. 04/24/2020 lysine 500 mg tablet Take 500 mg by mouth daily. simvastatin (ZOCOR) 10 mg tablet Take 10 mg by mouth daily. 03/09/2021 documented as of this encounter Plan of Treatment Not on file documented as of this encounter Procedures Procedure Name Priority Date/Time Associated Diagnosis Comments US ABDOMEN PELVIS VESSELS DOPPLER RAD - Routine (most inpatients and all outpatients) 05/16/2024 2:08 PM CDT Aneurysm Splenic Artery (HCC) documented in this encounter Results * US Abdomen Pelvis Vessels Doppler [...] 1.3 cm in diameter. Neftaly Raines P.A.-C. IMEduarda US PROCEDURE S documented in this encounter Visit Diagnoses Diagnosis Aneurysm Splenic Artery (HCC) documented in this encounter Care Teams National Sales Consultant Relationship Specialty Start Date End Date Elsewhere, Pcp PCP - General Internal Medicine 01/27/22 documented as of this encounter
--- OUTSIDE RECORDS SUMMARY | 2024-05-23 13:02 | XMS_ITS | Encounter Summary ---
Author Organization [facility] Address [address] [place] [address] Care Team Providers Care Software Integrator Name Role Phone Elsewhere, Pcp Primary Care Provider Unavailabl e Reason for Visit * Outpatient (Routine) - Closed Specialty Diagnoses / Procedures Referred By Araceli fernandes Referred To Contact Vascular Medicine Neftaly Raines P.A.-CRochelle [address] [place] [phone] [facility] Referral ID Status Reason Start Date Expiration Date Visits Re quested Visits Authorized [id number] Closed 06/16/2023 06/15/2026 1 1 Encounter Details Date Type Department Care Team (Late st Contact Info) Description 05/16/2024 4:00 PM CDT Office Visit Department of Vascular Medicine in [place], [place] [address] [place] [phone] Neftaly Raines, PRochelleA.-CRochelle [address] [place] [phone] Aneurysm Splenic Artery (HCC) (Primary Dx) Social History Tobacco Use Types Packs/Day Years Used Date Smoking Tobacco: Never Passive Smoke Exposure: Never Smokeless Tobacco: Never Tobacco Cessation:Counseling Given: Not Answered [facility] Utilities Answer Date Recorded In the past 12 months has [employer], gas, oil, or water [employer] threatened to shut off services in your [...] declined 01/27/2022 How often do you attend evangelical or presybeterian serv ices? Patient declined 01/27/2022 Do you belong to any clubs o r organizations such as evangelical groups, unions, fraternal or athletic groups, or [...] medical care, and heating? Patient declined 01/27/2022 [facility] - Occupational Stress Questionnaire Answer Date Recorded [...] money to buy more. Never true 05/12/20 24 Within the past 12 months, t he [...] your living situation today? I have a [facility] place to live 05/12/2024 Education Answer Date [...] Mass Index 28.57 05/16/2024 3:34 PM CDT documented in this encounter Progress Notes * Neftaly Raines P.A.-C. - 05/16/2024 4:00 PM CDT SUBJECTIVE CHIEF COMPLAINT / REASON FOR VISIT Splenic artery aneurysm HISTORY OF PRESENT ILLNESS Aneurysm Splenic Artery (HCC) Ms. Pagan is a 68 y.o. female that I am seeing today for follow-up of her splenic artery aneurysm. She lived in [place] for many years but moved to [place] to be near her daughter and son-in-law. She has another daughter with Down Syndrome who lives with her. It was nice to see her back. [...] for bleeding and fibroids, and remote tonsillectomy. Thepatient is a never smoker. Patient denies history of TIA or CVA nor she had symptoms such. Patient denies CAD or any cardiac interventions and denies chest pain or dyspnea. Patient denies postprandial pain. Patient denies claudication. The following portions of the patient's history were reviewed and updated as appropriate: allergies, current medications, family history, medical history, social history, surgical history, psychiatric history, substance abuse history, problem list, labs, diagnostic testing. I reviewed the pertinentclinical notes in the electronic health record. REVIEW OF SYSTEMS Systems were reviewed. Pertinent positives and pertinent negatives are documented in the history ofpresent illness. OBJECTIVE VITALS BP 127/80 (BP Location: Right arm, Patient Position: Sitting) Pulse 70 Ht 164.9 cm Wt 77.7 kg BMI 28.57 kg/m?? Body mass index is 28.57 kg/m??. PHYSICAL EXAMINATION General: In no acute distress Psychiatric: Pleasant. DIAGNOSTIC REVIEW All labs and diagnostic studies were reviewed. U/S: Unchanged size of the mid to distal splenic artery aneurysm, which measures up to 1.3 cm in diameter. ASSESSMENT / PLAN #1 Aneurysm Splenic Artery (HCC) The patient returns for follow-up of her splenic artery aneurysm. The size of the aneurysm is stable and can be rechecked again in one year. The patient would like to follow this locally next year sowe will attempt to do that and reassess. All questions answered. Total time spent with patient care: 20 minutes. Neftaly Raines P.A.-C. documented in this encounter Plan of Treatment Not on file documented as of this encounter Visit Diagnoses Diagnosis Aneurysm Splenic Artery (HCC)- Primary documented in this encounter Care Teams Software Integrator Relationship Specialty Start Date End Date Elsewhere, Pcp PCP - General Internal Medicine 01/27/22 documented as of this encounter
== END 2024-05-20 07:58 | disposition home or self-care (01) ==
LOC: NFLDREF 05-23 13:00
PROVIDERS: PCP Internal Medicine; Referring Provider Internal Medicine; Visit Provider Internal Medicine
DX: E03.8 Other specified hypothyroidism (principal); M85.80 Other specified disorders of bone density and structure, unspecified site; I10 Essential (primary) hypertension; E78.5 Hyperlipidemia, unspecified
CPT/HCPCS: 80048; 80061; 82306; 84443

== ENCOUNTER 2024-08-22 11:03 | Outpatient (CLI) | payer MEDICARE, BC, SELFPAY ==
--- OUTSIDE RECORDS SUMMARY | 2024-08-22 11:05 | XMS_ITS | Clinical Summary ---
Author Organization [facility] Address [address] [place] [address] Care Team Providers Care Coal Passer Name Role Phone Elsewhere, Pcp Primary Care Provider Unavailabl e Source Comments Patient records contain information from all sites at [facility]. For routine questions regarding patient records, call [phone] during business hours, M-F 8:00 AM - 5:00 PM Central Time. Record requests for emergency care only can be directed to [phone] at any time.[facility] Allergies Active Allergy Reactions Criticality Noted Date Comments Pollen Extracts Cough 05/19/2020 Medications lisinopriL (PRINIVIL,ZESTR IL) 20 mg tablet Take 20 mg by mouth daily. 0 Active lysine 500 mg tablet Take 500 mg by mouth daily. Active simvastatin (ZOCOR) 10 mg tablet Take 10 mg by mouth daily. 1 Active levocetirizine (Xyzal) 5 mg tablet Take 5 mg by mouth daily. 3 Active fluticasone propionate (Flonase) 50 mcg/actuation nasal spray Administer 1 spray into nostril(s) daily. 3 Active celecoxib (CeleBREX) 200 mg capsule Take 1 capsule by mouth as needed. 3 Active CALCIUM ACETATE ORAL Take 1 capsule by mouth daily. Active Active Problems Problem Noted Date Diagnosed Date Aneurysm Splenic Artery 07/19/2022 Osteopenia 01/31/2022 Menopause 01/31/2022 Social History Tobacco Use Types Packs/Day Years Used Date Smoking Tobacco: Never Passive Smoke Exposure: Never Smokeless Tobacco: Never Tobacco Cessation:Counseling Given: Not Answered [facility] Utilities Answer Date Recorded In the past 12 months has e [employer], gas, oil, or water [employer] threatened to shut off services in your [...] declined 01/27/2022 How often do you attend samaritan or congregation serv ices? Patient declined 01/27/2022 Do you belong to any clubs o r organizations such as samaritan groups, unions, fraternal or athletic groups, or [...] medical care, and heating? Patient declined 01/27/2022 [facility] [place] of Occupat ional Health - Occupational Stress [...] living situation today? I have a [facility] place to live 05/12/2024 Education Answer Date Recorded What is the highest level of school you have completed or the highest degree you have received? Bachelor's degree (e.g., BA, AB, BS) 05/26/2020 Comments Unknown Sex and Gender Information Value Date Recorded Sex Assigned at Female 01/27/2022 2:09 PM CDT Legal Sex Female 1:24 PM CDT Gender Identity Female 01/27/2022 2:09 [...] - Tdap) 11/19/2013 11/18/2013 Creatinine Level (Kidney Function Test) 05/19/2021 05/19/2020 Depression Screening (Annual PHQ-2) 10/09/2023 Fall Risk Screen (Annual) 10/09/2023 COVID-19 Vaccine ( season) 2024 08/11/2023, 09/16/2022, 02/04/2022, Additional history exists Influenza Vaccine (#1) 2024 3, 08/05/2022, 08/03/2021, Additional history exists Zoster Vaccines Completed 08/18/2018, 06/09, 2014 Pneumococcal vaccine (65+ years) Completed 06/17/2020, 12/16/2019 Bone Density Scan (Osteoporosis Screen) Discontinued 01/26/2022 IPV Vaccines Aged Out No longer eligi ble based on patient's age to complete this topic Procedures Procedure Name Priority Date/Time Associated Diagnosis Comments CREATININE WITH EGFR, S/P Routine 05/19/2020 2:25 PM CDT Hypertension Essential Primary from Last 3 Months or Most Recently Relevant to Health Maintenance Results * Creatinine with Estimated GFR (05/19/2020 2:25 [...] CDT Azar Holly M.D. LAB BLOOD ADD-ON Final R esult [facility] [address] [place] [address], [facility] [address] [place] [address] from Last 3 Months or Most Recently Relevant to Health [place] [phone] MEDICARE [facility] Care Teams Coal Passer Relationship Specialty Start Date End Date Elsewhere, Pcp PCP - General Internal Medicine 01/27/22
--- OUTSIDE RECORDS SUMMARY | 2024-08-22 11:05 | XMS_ITS | Referral Summary ---
Author Organization [facility] Address [address] [place] [address] Care Team Providers Care Historiographer Name Role Phone Elsewhere, Pcp Primary Care Provider Unavailabl e Source Comments Patient records contain information from all sites at [facility]. For routine questions regarding patient records, call [phone] during business hours, M-F 8:00 AM - 5:00 PM Central Time. Record requests for emergency care only can be directed to [phone] at any time.[facility] Allergies Active Allergy Reactions Criticality Noted Date [...] Tobacco: Never Tobacco Cessation:Counseling Given: Not Answered [facility] Utilities Answer Date Recorded In the past 12 months has e [employer], gas, oil, or water [employer] threatened to shut off services in your [...] declined 01/27/2022 How often do you attend jain or religion serv ices? Patient declined 01/27/2022 Do you belong to any clubs o r organizations such as jain groups, unions, fraternal or athletic groups, or [...] medical care, and heating? Patient declined 01/27/2022 [facility] [place] of Occupat ional Health - Occupational Stress [...] your living situation today? I have a [facility] place to live 05/12/2024 Education Answer [...] the 2009 CKD_EPI creatinine equation. eGFR-Black/Afric an Faroese 72 >=60 mL/min/BSA 05/19/2020 3:19 PM CDT DTL Comment: ----ADDITIONAL INFORMATION---- Estimated GFR calculated using the 2009 CKD_EPI creatinine equation. Blood (Blood, Venous) 05/19/2020 2:25 PM CDT 05/19/2020 3:03 PM CDT Azar Holly M.D. LAB BLOOD ADD-ON Final R esult [facility] [address] [place] [address], [facility] DTL [facility] [address] [place] [address] from Last 3 Months or Most Recently Relevant to Health Maintenance Insurance MEDICARE [facility] Care Teams Historiographer Relationship Specialty Start Date End Date Elsewhere, Pcp PCP - General Internal Medicine 01/27/22
--- OUTSIDE RECORDS SUMMARY | 2024-08-22 11:05 | XMS_ITS ---
Author Organization [facility] Address [address] [place] [address] Care Team Providers Care Associate School Psychologist Name Role Phone Unavailable Unavailable Unavailable Surgery Details Not on file Complications Check Surgery Details section. Procedure Estimated Blood Loss Check Surgery Details section. Procedure Findings Check Surgery Details section. Procedure Specimens Taken Check Surgery Details section.
--- OUTSIDE RECORDS SUMMARY | 2024-08-22 11:05 | XMS_ITS | Clinical Summary ---
Author Organization [facility] Address [place], [place] [address] Care Team Providers Care Employee Development Manager Name Role Phone Susi Hazel MD Primary Care Provider [phone] Allergies No known active allergies Medications Medication [...] per actuation) nasal solution (FLONASE) Inhale 1 [place] into affected nostril(s) once daily. 16 g [...] PCV) 019 COVID-19 vaccine series ( - 2023- season) 4 Influenza for age 65+ 06/09/2024 Care Teams Employee Development Manager Relationship Specialty Start Date End Date Susi Hazel MD [address] [place] [address] PCP - General Internal Medicine 01/10/23
--- OUTSIDE RECORDS SUMMARY | 2024-08-22 11:06 | XMS_ITS | Encounter Summary ---
Author Organization [facility] Address [address] [place] [address] Care Team Providers Care Acid Bleacher Name Role Phone Elsewhere, Pcp Primary Care Provider Unavailabl e Reason for Referral * Outpatient (Routine) - Closed Specialty Diagnoses / Procedures Referred By Abbeac t Referred To Contact Diagnoses Aneurysm Splenic Artery (HCC) Procedures US Abdomen Pelvis Vessels Doppler Neftaly Raines P.A.-Nancy [address] [place] [phone] Phone: tel: fax: [facility] Referral ID Status Reason Start Date Expiration Date Visits Re quested Visits Authorized [id number] Closed 06/16/2023 06/15/2024 1 1 Reason for Visit * Outpatient (Routine) - Closed Specialty Diagnoses / Procedures Referred By Araceli fernandes Referred To Contact Diagnoses Aneurysm Splenic Artery (HCC) Procedures US Abdomen Pelvis Vessels Doppler Neftaly Raines P.A.-CRochelle [address] [place] [phone] Phone: tel: fax: [facility] Referral ID Status Reason Start Date Expiration Date Visits Re quested Visits Authorized [id number] Closed 06/16/2023 06/15/2024 1 1 Encounter Details Date Type Department Care Team (Latest Contact Info) Description 05/16/2024 1:48 PM CDT - 05/16/2024 11:59 PM CDT Hospital Encounter Department of Radiology, [facility], in [place], [place] [address] [place] [phone] Neftaly Raines P.A.-C. 200 [place] [phone] Aneurysm Splenic Artery (HCC) Discharge Disposition: Home or Self Care Social History Tobacco Use Types Packs/Day Years Used Date Smoking Tobacco: Never Passive Smoke Exposure: Never Smokeless Tobacco: Never [facility] Utilities Answer Date Recorded In the past 12 months has e [employer], gas, oil, or water [employer] threatened to shut off services in your [...] declined 01/27/2022 How often do you attend voodoo or cheondoism serv ices? Patient declined 01/27/2022 Do you belong to any clubs o r organizations such as voodoo groups, unions, fraternal or athletic groups, or [...] medical care, and heating? Patient declined 01/27/2022 [facility] of Occupat ional Health - Occupational [...] your living situation today? I have a [facility] place to live 05/12/2024 Education Answer [...] this encounter Medications at Time of Discharge CALCIUM ACETATE ORAL Take 1 capsule by mouth daily. celecoxib (CeleBREX) 200 mg capsule Take 1 capsule by mouth as needed. 02/01/2023 fluticasone propionate (Flonase) 50 mcg/actuation nasal spray Administer 1 spray into nostril(s) daily. 02/14/2023 levocetirizine (Xyzal) 5 mg tablet Take 5 mg by mouth daily. 02/14/2023 lisinopriL (PRINIVIL,ZESTRI L) 20 mg tablet Take 20 mg by [...] whichmeasures up to 1.3 cm in diameter. us Neftaly Raines P.A.-C. [employer] US PROCEDURES Final Result documented in this encounter Visit Diagnoses Diagnosis Aneurysm Splenic Artery (HCC) documented in this encounter Care Teams Acid Bleacher Relationship Specialty Start Date End Date Elsewhere, Pcp PCP - General Internal Medicine 01/27/22 documented as of this encounter
--- OUTSIDE RECORDS SUMMARY | 2024-08-22 11:06 | XMS_ITS | Encounter Summary ---
Author Organization [facility] Address [address] [place] [address] Care Team Providers Care Supervisor Ordnance Truck Installation Name Role Phone Elsewhere, Pcp Primary Care Provider Unavailabl e Reason for Visit * Outpatient (Routine) - Closed Specialty Diagnoses / Procedures Referred By Araceli fernandes Referred To Contact Vascular Medicine Neftaly Raines P.ARochelle-Nancy [address] [place] [phone] Phone: tel: fax: [facility] Referral ID Status Reason Start Date Expiration Date Visits Re quested Visits Authorized [id number] Closed 06/16/2023 06/15/2026 1 1 Encounter Details Date Type Department Care Team (Late st Contact Info) Description 05/16/2024 4:00 PM CDT Office Visit Department of Vascular Medicine in [place], [place] [address] [place] [phone] Neftaly Raines, PRochelleA.-CRochelle [address] [place] [phone] Aneurysm Splenic Artery (HCC) (Primary Dx) Social History Tobacco Use Types Packs/Day Years Used Date Smoking Tobacco: Never Passive Smoke Exposure: Never Smokeless Tobacco: Never Tobacco Cessation:Counseling Given: Not Answered [facility] Utilities Answer Date Recorded In [...] declined 01/27/2022 How often do you attend anabaptist or mandaen serv ices? Patient declined 01/27/2022 Do you belong to any clubs o r organizations such as anabaptist groups, unions, fraternal or athletic groups, or [...] medical care, and heating? Patient declined 01/27/2022 [facility] of Occupat ional Health - Occupational Stress [...] your living situation today? I have a [facility] place to live 05/12/2024 Education Answer [...] in this encounter Progress Notes * Neftaly Raines, Ana - 05/16/2024 4:00 PM CDT SUBJECTIVE CHIEF COMPLAINT / REASON FOR VISIT Splenic artery aneurysm HISTORY OF PRESENT ILLNESS Aneurysm Splenic Artery (HCC) Ms. Pagan is a 68 y.o. female that I am seeing today for follow-up of her splenic artery aneurysm. She lived in [place] for many years but moved to [place] to be near her daughter and son-in-law. [...] Primary documented in this encounter Care Teams Supervisor Ordnance Truck Installation Relationship Specialty Start Date End Date Elsewhere, Pcp PCP - General Internal Medicine 01/27/22 documented as of this encounter
--- NOTE | 2024-08-22 12:59 | W.ANESCHARGE ---
Anesthesia Charges Start Date/Time Anesthesia Start Date: 08/22/24 Anesthesia Start Time: 12:13 Stop Date/Time Anesthesia Stop Date: 08/22/24 Anesthesia Stop Time: 12:58
--- NOTE | 2024-08-22 13:11 | W.ANESCHARGE ---
Anesthesia Charges Start Date/Time Anesthesia Start Date: 08/22/24 Anesthesia Start Time: 12:13 Stop Date/Time Anesthesia Stop Date: 08/22/24 Anesthesia Stop Time: 12:58 Summary Extremes of Age - Over 70 or under 1: MDA
== END 2024-08-22 11:04 | disposition home or self-care (01) ==
LOC: OP CLINIC 11:03
PROVIDERS: PCP Internal Medicine; Visit Provider Surgery
DX: Z12.11 Encounter for screening for malignant neoplasm of colon (principal); D12.0 Benign neoplasm of cecum; D12.3 Benign neoplasm of transverse colon; D12.5 Benign neoplasm of sigmoid colon; K57.30 Diverticulosis of large intestine without perforation or abscess without bleeding; K63.89 Other specified diseases of intestine; Z86.0100 Personal history of colon polyps, unspecified
CPT/HCPCS: 00811; 45380; 45385; 88305; 99100; J2704

== ENCOUNTER 2024-11-20 14:14 | Outpatient (CLI) | payer MEDICARE, BC, SELFPAY | END 2024-11-20 14:15 | disposition home or self-care (01) | LOC: RAD 14:15 | PROVIDERS: PCP Internal Medicine; Visit Provider Internal Medicine | DX: Z13.820 Encounter for screening for osteoporosis (principal); M85.89 Other specified disorders of bone density and structure, multiple sites | CPT/HCPCS: 77080 ==

== ENCOUNTER 2024-12-09 08:57 | Outpatient (CLI) | payer MEDICARE, BC, SELFPAY | END 2024-12-09 08:58 | disposition home or self-care (01) | LOC: NFLDREF 09:05 | PROVIDERS: PCP Internal Medicine; Visit Provider Internal Medicine | DX: I10 Essential (primary) hypertension (principal) | CPT/HCPCS: 80053 ==

== ENCOUNTER 2024-12-23 10:34 | Day surgery (SDC) | payer MEDICARE, BC, SELFPAY ==
[2024-12-23] VITALS (22 sets, daily range): BP systolic 87–131; BP diastolic 40–81; PULSE 58–717; RESP 12–20; TEMP 35.4–36.9; O2SAT 91–99; BMI 28.8
--- NOTE | 2024-12-23 10:52 | W.PM.H&PU ---
History & Physical Update History & Physical Update H&P Reviewed and patient assessed: No changes noted
[2024-12-23] MEDS: OXYCODONE (CR) 10 MG TAB.ER.12H PO (11:20)
[2024-12-23] MEDS: ACETAMINOPHEN 500 MG TABLET 1000 MG PO ×3 (11:20→23:49)
[2024-12-23] MEDS: SODIUM CHLORIDE 0.9 % (FLUSH) 10 ML SYRINGE IVF (11:31)
[2024-12-23] MEDS: LACTATED RINGERS 1000 ML 1,000 ML 100 ML IV (11:31)
--- NOTE | 2024-12-23 11:36 | SUR.PREOP ---
TIME?OUT:?left knee, 1136 PT/RN/MDA?VERIFICATION?OF?SURGICAL?SITE,?PROCEDURE,?AND?CONSENT OBTAINED?PRIOR?TO?INVASIVE?PROCEDURE.
[2024-12-23] MEDS: fentaNYL 100 MCG/2 ML inj IVP (11:37)
[2024-12-23] MEDS: MIDAZOLAM HCL 1 MG/ML inj IVP (11:37)
[2024-12-23] MEDS: CEFAZOLIN 2 GM in 0.9 % SODIUM CHLORIDE Mini-bag 100 ML IVPB (12:00)
[2024-12-23] MEDS: TRANEXAMIC ACID 100 MG/ML INJ 1000 MG IV (12:04)
--- NOTE | 2024-12-23 12:24 | P.NB_ITS ---
Nerve Block Nerve Block Time Seen by Provider: 11:38 Date Seen: 12/23/24 Type of block requested by surgeon for post-operative analgesia: adductor canal Side: left Time out performed: Yes Verification of patient name: Yes Verification of date of : Yes Site marking: site marked Name of person performing procedure: Geoffrey Continuous monitoring Was continuous monitoring of O2 sat, B/P, field liability generalist, recorded every 15 minutes?: Yes Procedure Checklist: sterile prep, needles and gloves Ultrasound guided. Images saved: Yes Medications given in 5ml increments after negative aspiration: Marcaine %: 0.25 mL: 15 Needle gauge: 20 Precedex (mcg): 25 Patient tolerated procedure well: Yes Block Charges Block Charge (with Pro Fee): Femoral Nerve Use of Ultrasound Machine for Block: Yes- US Guidance/pain block
--- NOTE | 2024-12-23 12:24 | W.PM.NB ---
Nerve Block Nerve Block Time Seen by Provider: 11:36 Date Seen: 12/23/24 Type of block requested by surgeon for post-operative analgesia: geniculars Side: left Time out performed: Yes Verification of patient name: Yes Verification of date of : Yes Site marking: site marked Name of person performing procedure: Geoffrey Continuous monitoring Was continuous monitoring of O2 sat, B/P, cardiac cath technologist, recorded every 15 minutes?: Yes Procedure Checklist: sterile prep, needles and gloves Ultrasound guided. Images saved: Yes Medications given in 5ml increments after negative aspiration: Marcaine %: 0.25 mL: 9 Needle gauge: 25 Patient tolerated procedure well: Yes Block Charges Block Charge (with Pro Fee): Genicular Nerve Block
--- NOTE | 2024-12-23 12:25 | P.ANES_ITS ---
Anesthesia Charges Start Date/Time Anesthesia Start Date: 12/23/24 Anesthesia Start Time: 11:50 Stop Date/Time Anesthesia Stop Date: 12/23/24 Anesthesia Stop Time: 14:07 Summary Extremes of Age - Over 70 or under 1: MDA Coding CPT Codes CPT Codes: ANESTH KNEE ARTHROPLASTY - 86871 ([id number]) P2 - PATIENT W/MILD SYST DISEASE, QK - INSTRUCTOR SUBSTITUTE COSMETOLOGY 2-4 CNCRNT ANES PROC, QX - CIRCULAR CLERK SVC W/ MD MED DIRECTION Additional Codes: Summary - Extremes of Age - Over 70 or under 1: MDA ([id number])
--- NOTE | 2024-12-23 12:25 | W.ANESCHARGE ---
Anesthesia Charges Start Date/Time Anesthesia Start Date: 12/23/24 Anesthesia Start Time: 11:50 Stop Date/Time Anesthesia Stop Date: 12/23/24 Anesthesia Stop Time: 14:07 Summary Extremes of Age - Over 70 or under 1: MDA Coding CPT Codes CPT Codes: ANESTH KNEE ARTHROPLASTY - 03054 ([id number]) P2 - PATIENT W/MILD SYST DISEASE, QK - EXCAVATING MACHINE OPERATOR 2-4 CNCRNT ANES PROC, QX - DIRECTOR OF MANUFACTURING OPERATIONS SVC W/ MD MED DIRECTION Additional Codes: Summary - Extremes of Age - Over 70 or under 1: MDA ([id number])
--- NOTE | 2024-12-23 13:24 | P.ORPRC_ITS ---
Procedure Note Date of procedure: 12/23/24 Procedure: PREOPERATIVE DIAGNOSIS: 1. Left knee osteoarthritis, primary, severe POSTOPERATIVE DIAGNOSIS: 1. Left knee osteoarthritis, primary, severe PROCEDURE: 1. Left total knee arthroplasty - subvastus SURGEON: Demario Draper MD. BOOK CANVASSER: Jose Armando Huntley PA-C - Of note, a skilled malt specifications control assistant was critical for this case to aid in patient positioning, tissue retraction, limb manipulation/positioning, and closure. ANESTHESIA: Spinal anesthetic EBL: 50ml IMPLANTS: DePuy J&J all cemented TKA - Attune PS femur size 5 regular Size 4 tibia 5 mm poly spacer 35 mm patella TOURNIQUET: 90 min at 300 torr COMPLICATIONS: None evident INDICATIONS: The patient is a pleasant 69-year-old female who has experienced severe left knee pain and difficulty bearing weight. Workup included x-rays which revealed severe osteoarthrosis in the knee. Given the deformity, the dysfunction, and the pain, as well as the failure of nonoperative management, recommendation was made for surgery. FINDINGS: Full-thickness chondral loss with erosion into the medial femoral condyle and medial tibial plateau. To lesser degree patellofemoral and lateral compartment chondromalacia. Degenerative discs pathology medial greater than lateral. Moderate effusion upon entering the joint. DESCRIPTION OF PROCEDURE: Following a thorough discussion of risks, benefits, and alternatives consent was obtained and the left knee was marked. The patient was brought to the operating room and placed supine on the operating table. Induction of anesthesia was undertaken. 2 g IV Ancef and 1 g tranexamic acid was administered within 1 hr of incision preoperatively. Proper time-out was performed identifying proper patient, site, procedure. The operative extremity was prepped and draped in the appropriate sterile fashion using ChloraPrep after the patient was positioned supine with all bony prominences well padded. A longitudinal, anterior, midline skin incision was made starting approximately 3cm proximal to the superior pole of the patella and advanced distal to the tibial tubercle. A subvastus approach was utilized. A medial subperiosteal sleeve was created with knife, jensen elevator and curved osteotome. The retropatellar fatpad was resected and the synovium in the suprapatellar pouch excised to visualize the anterior femoral cortex. Femoral preparation was performed via an intramedullary guide. Step drill allowed access into the femoral canal. The distal cutting guide was placed with 5? of valgus and 10 mm cut on the distal femur. Femur was sized using a posterior referencing guide in 3? of external rotation. This found have a best fit with the sizing noted above. The 4 in 1 cutting block was then placed, and the distal femur shaped accordingly. The box cut was then created and the trial implant inserted to confirm appropriate fit. We turned our attention to the proximal tibia. Extramedullary guide was utilized for cutting with the goal of being 90 degree cut from the mechanical axis of the tibia in the varus/valgus plane utilizing tibial crest as the primary alignment. Initially a 2 mm resection was performed from the medial tibial plateau. Ultimately, balancing was achieved in both flexion and extension in both varus and valgus. The knee was able to achieve full extension as well comfortably. The patella was initially measured and found have a thickness of 23 mm. It was resected back to approximately 14 mm. It was sized to be a best fit with as noted above. This was drilled, trial placed. All trials were placed and found to have an excellent stability and balance. At this stage, trial implants were removed, the knee was thoroughly irrigated with normal saline, and the cement was mixed. After irrigation, the knee was thoroughly dried, and cement placed, with the real tibial and femoral implants placed along with the patella. Trial poly spacer was placed and confirmed to have excellent range of motion and full extension, and the real poly spacer opened and inserted. All extra cement was removed, and a 3 min Betadine soak performed. Finally, a final irrigation round with normal saline was performed. Closure performed with 0 PDS and #0 Stratafix for the quad tendon/retinaculum. 2-0 Vicryl/Stratafix for the subcutaneous and 4-0 Monocryl for subcuticular closure. Dressings were applied and the patient was awoken from anesthesia after the tourniquet deflated and transferred the PACU in stable condition. A skilled malt specifications control assistant was critical for this case to aid in patient positioning, tissue retraction, bone exposure, limb manipulation/positioning, patient safety, and closure. PLAN: 1. Weight bear as tolerated operative extremity. 2. 23 hr perioperative antibiotics. 3. Ice. 4. PT/OT consults for ambulation assistance/mobility education. 5. Social work consult for discharge planning. 6. DVT prophylaxis with at SCDs and aspirin twice daily.
--- NOTE | 2024-12-23 13:27 | CRLHL7_ITS ---
For Patients: As a result of the Cures Act, medical imaging exams and procedure reports are released immediately into your electronic medical record. You may view this report before your referring provider. If you have questions, please contact your health care provider. Indication: post op Technique: Two views left knee Findings/Impression: Hardware from a left total knee arthroplasty is in satisfactory position. Bone alignment is normal. No sign of acute fracture. Postop changes are within normal limits. Dictated by Umesh Villegas MD @ 12/23/2024 3:46:56 PM (Electronically Signed)
--- NOTE | 2024-12-23 14:07 | W.ANESCHARGE ---
Anesthesia Charges Start Date/Time Anesthesia Start Date: 12/23/24 Anesthesia Start Time: 11:50 Stop Date/Time Anesthesia Stop Date: 12/23/24 Anesthesia Stop Time: 14:07 Summary Extremes of Age - Over 70 or under 1: SEARCH ENGINE OPTIMIZATION STRATEGIST Coding CPT Codes Additional Codes: Summary - Extremes of Age - Over 70 or under 1: SEARCH ENGINE OPTIMIZATION STRATEGIST ([id number])
[2024-12-23] MEDS: LACTATED RINGERS 1000 ML 1,000 ML 75 ML IV (16:02)
[2024-12-23] MEDS: OXYCODONE 5 MG TABLET PO ×3 (16:53→22:03)
[2024-12-23] MEDS: CEFAZOLIN 1 GM in 0.9 % SODIUM CHLORIDE Mini-bag 100 ML IVPB (18:26)
--- NOTE | 2024-12-23 20:10 | P.IMCN_ITS ---
Date of Consult Patient: [facility] [place] Patient Consult date: 12/23/24 Requesting Physician: Orthopedics Primary Care Provider: Susi Hazel MD Consult Narrative Narrative: Daniela Pagan is a 69 year old woman with longstanding left Shaikh arthrosis presents today for an elective left total knee arthroplasty. This is undertaken successfully without any apparent complications. Estimated blood loss 50 mL. Currently pain is well managed. Review of Systems Status of ROS: Reports: 6 or more systems reviewed and unremarkable except as noted in History and below PFSH PFSH Surgical History History of total left knee replacement (12/23/24) ?Z96.652 - Presence of left artificial knee joint (ICD-10) History of sinus surgery (04/14/23) ?Z98.890 - Other specified postprocedural states (ICD-10) History of total hysterectomy with bilateral salpingo-oophorectomy (BSO) (2003) ?Z90.710 - Acquired absence of both cervix and uterus (ICD-10) ?Z90.722 - Acquired absence of ovaries, bilateral (ICD-10) ?Z90.79 - Acquired absence of other genital organ(s) (ICD-10) History of tonsillectomy and adenoidectomy ?Z90.89 - Acquired absence of other organs (ICD-10) Family History Mother Colon cancer Social History What is your current living situation?: I presently have a place to live Problems where you live: no known problems In the past 12 months, utilities in danger of being shut off: no In past 12 months, lack of transportation kept you from medical appts, meetings, work, or getting things needed for daily living: no In the past 12 mos, have been you worried that your food would run out before you had money to buy more?: never true In the past 12 mos, the food you bought just didn't last and you didn't have money to buy more?: never true Smoking Status: Never smoker How often do you have a drink containing alcohol: never AUDIT-C Alcohol total score: 0 Non-prescribed substance use: denies use How often does anyone, including family, friends and others, physically hurt you : never How often does anyone, including family, friends and others, insult or talk down to you: never How often does anyone, including family, friends and others, threaten you with harm: never How often does anyone, including family, friends and others, scream or curse at you: never Meds Home Medications and Allergies Home Medications ?Medication ?Instructions ?Recorded ?Confirmed ?Type cholecalciferol (vitamin D3) 25 25 mcg PO QDAY 05/16/22 12/23/24 History mcg (1,000 unit) tablet calcium acetate 1 cap PO DAILY 09/12/22 12/23/24 History lysine 500 mg tablet 500 mg PO QDAY 09/12/22 12/23/24 History levocetirizine 5 mg tablet (Xyzal) 5 mg PO QDAY 11/17/22 12/23/24 History fluticasone propionate 50 1 spray intranasal DAILY PRN 04/14/23 12/23/24 History mcg/actuation nasal spray,suspension (24 Hour Allergy Relief) simvastatin 10 mg tablet 10 mg PO HS 12/23/24 12/23/24 History Allergies Allergy/AdvReac Type Severity Reaction Status Date / Time cefuroxime (From Ceftin) AdvReac Intermediate Gastrointestinal Verified 12/23/24 10:50 Upset Exam Narrative: Exam Narrative: Examined patient in her hospital room. Appears comfortable and in no acute distress. Alert and oriented x4. Friendly and articulate. Vision and hearing are adequate. Midline trachea. Supple neck. No head neck lymphadenopathy. Lungs are clear to auscultation. No wheezing, rhonchi, rales. Chest wall excursions are full. No CVA tenderness. Heart tones with regular rhythm, normal S1-S2, no murmur, gallop, or rub. PMI not laterally displaced. Abdomen with active bowel sounds, soft, nontender. Extremities without edema. Const: Vital Signs, click to edit/add: Vital Signs - 24 hr 12/23/24 11:04 12/23/24 11:38 12/23/24 11:45 Temperature 98.4 F Pulse Rate 66 64 66 Respiratory Rate 20 20 20 Blood Pressure 131/81 128/69 102/60 Pulse Oximetry 96 94 95 Oxygen Delivery Me thod Room Air Nasal Cannula Nasal Cannula Oxygen Flow Rate 3 3 12/23/24 14:05 12/23/24 14:10 12/23/24 14:15 Temperature 97.9 F Pulse Rate 60 62 68 Respiratory Rate 20 17 18 Blood Pressure 87/40 L 119/70 96/40 L Pulse Oximetry 91 92 93 Oxygen Delivery Me thod Room Air Oxygen Flow Rate 12/23/24 14:20 12/23/24 14:25 12/23/24 14:30 Temperature Pulse Rate 63 67 67 Respiratory Rate 12 17 20 Blood Pressure 92/51 L 97/56 L 94/55 L Pulse Oximetry 92 96 93 Oxygen Delivery Me thod Nasal Cannula Room Air Room Air Oxygen Flow Rate 3 12/23/24 14:35 12/23/24 14:48 12/23/24 15:00 Temperature 97.2 F L 96 F L Pulse Rate 66 58 L 61 Respiratory Rate 20 18 18 Blood Pressure 103/58 L 102/58 L 97/63 Pulse Oximetry 96 95 95 Oxygen Delivery Me thod Room Air Room Air Room Air Oxygen Flow Rate 12/23/24 15:15 12/23/24 15:30 12/23/24 15:45 Temperature 95.8 F L 96.3 F L Pulse Rate 65 71 63 Respiratory Rate 18 16 16 Blood Pressure 109/59 L 111/67 108/65 Pulse Oximetry 95 94 97 Oxygen Delivery Me thod Room Air Room Air Room Air Oxygen Flow Rate 12/23/24 16:15 12/23/24 16:45 12/23/24 17:30 Temperature 96.1 F L 96.0 F L Pulse Rate 63 60 70 Respiratory Rate 16 16 16 Blood Pressure 112/71 107/65 122/67 Pulse Oximetry 99 98 98 Oxygen Delivery Me thod Room Air Room Air Room Air Oxygen Flow Rate 12/23/24 18:30 12/23/24 19:30 Temperature 96.5 F L 96.9 F L Pulse Rate 70 71 Respiratory Rate 16 18 Blood Pressure 112/64 118/69 Pulse Oximetry 98 97 Oxygen Delivery Me thod Room Air Room Air Oxygen Flow Rate Assessment and Plan Assessment and plan (1) Osteoarthritis of left knee: Problem comment: severe - [id number] Status: Acute (2) Status post left knee replacement: Status: Acute Plan 1. I reviewed impression and recommendations with patient 2. Agree with postoperative venous thromboembolism prophylaxis 3. Agree with perioperative antibiotic prophylaxis 4. Completed hospitalist portion of discharge 5. Available to support while patient is in hospital Total Time Spent Total Time Spent: 50 minutes
[2024-12-23] MEDS: ASPIRIN 81 MG TABLET EC PO (20:52)
[2024-12-23] MEDS: SENNOSIDES 1 TAB TABLET 2 TAB PO (20:53)
[2024-12-23] MEDS: SIMVASTATIN 10 MG TABLET PO (20:53)
--- NOTE | 2024-12-23 22:32 | PC.NURSE ---
Patient arrived to floor post op for left total knee. No reports of nausea, pain adequately managed with scheduled and PRN pain medications and ice. Patient able to pivot to commode due to left knee giving out. At 2200- patient able to ambulate with Ax2 to bathroom. Voiding post-op. Vitally stable and uses call light appropriately. Nursing to continue to monitor.
[2024-12-24] MEDS: OXYCODONE 5 MG TABLET PO ×4 (00:11→08:39)
[2024-12-24] MEDS: CEFAZOLIN 1 GM in 0.9 % SODIUM CHLORIDE Mini-bag 100 ML IVPB (02:23)
[2024-12-24 02:48] VITALS: BP 125/60; PULSE 79; RESP 16; TEMP 36.4; O2SAT 98
[2024-12-24] MEDS: ACETAMINOPHEN 500 MG TABLET 1000 MG PO (06:07)
[2024-12-24 06:52] LABS: Basophils Absolute Auto 0.01 K/uL (0.00-0.30); Basophils Percent Auto 0.1 % (0.0-3.0); Hematocrit 39.2 % (33.0-51.0); Hemoglobin* 12.8 gm/dL (12.0-16.0); Immature Granulocytes Abs Auto 0.04 K/uL (0.00-0.30); Immature Granulocytes Pct Auto 0.4 %; Lymphocytes Percent Auto 9.1 % (20-44); Mean Corpuscular HGB Conc 33 gm/dL (32-36); Mean Corpuscular Hemoglobin 30 pg (26-34); Mean Corpuscular Volume 92 fL (80-100); Monocytes Percent Auto 8.1 % (0.0-11.0); Neutrophils Percent Auto 82.3 % (42.0-72.0); Platelet Count* 240 K/uL (140-440); Red Blood Count 4.27 m/uL (4.00-5.20); White Blood Count* 10.54 K/uL (4.50-11.00)
[2024-12-24 06:56] LABS: Slide Review Reflex No
--- NOTE | 2024-12-24 07:16 | PC.NURSE ---
Pt alert and oriented x3. Afebrile. Pt reports moderate pain in left knee, managed with ice pack, scheduled and PRN medications. Pt's left knee dressing is CDI. Pt is up A1/2 with walker and gait belt to commode d/t left knee weakness and buckling. Pt reports passing gas, voiding, and tolerating a regular diet. ?
[2024-12-24 07:22] LABS: Potassium* 4.2 mmol/L (3.6-5.1); Sodium* 136 mmol/L (135-149)
[2024-12-24 07:25] LABS: Blood Urea Nitrogen* 17 mg/dL (7-30); Creatinine* 0.7 mg/dL (0.5-1.5); Estimated Glomerular Filt Rate 93 ml/min
[2024-12-24] MEDS: LACTATED RINGERS 1000 ML 1,000 ML 75 ML IV (08:40)
[2024-12-24] MEDS: SENNOSIDES 1 TAB TABLET 2 TAB PO (08:41)
[2024-12-24] MEDS: ASPIRIN 81 MG TABLET EC PO (08:41)
[2024-12-24 10:00] VITALS: PULSE 74; RESP 20; O2SAT 94
[2024-12-24 10:23] VITALS: BP 105/64; PULSE 74; RESP 20; TEMP 36.6; O2SAT 94
--- NOTE | 2024-12-24 15:48 | PM.ORPN ---
Subjective Subjective Time Seen by Provider: 08:00 Date Seen: 12/24/24 Principal diagnosis: Status postop day 1 left total knee arthroplasty Interval history: Patient reports doing well. No acute events over night. Pain managed with scheduled and PRN medications, ice. DVT prophylaxis: 81 mg aspirin by mouth twice daily, SCDs, walking. Denies fevers, chills, aches, N/V, CP, SOB/MURILLO, or lightheadedness. Ortho Exam Narrative Exam Narrative: -Patient appears comfortable; no apparent acute distress -Alert and oriented times 3 -Operative knee moderately swollen; soft tissues supple; no ecchymosis; no erythematous streaking Warmth appropriate -Surgical dressing clean, dry, intact; no drainage -Bilateral calfs soft; no significant swelling, edema, tenderness, erythema, discoloration, warmth, or palpable cords -2+ DP/PT pulses, intact dermatomes and myotomes distally (5/5 strength) Const Vital Signs, click to edit/add: Vital Signs - 24 hr 12/23/24 16:15 12/23/24 16:45 12/23/24 17:30 Temperature 96.1 F L 96.0 F L Pulse Rate 63 60 70 Pulse Rate [Right Pulse Oximeter] Respiratory Rate 16 16 16 Blood Pressure 112/71 107/65 122/67 Blood Pressure [Right Arm] Pulse Oximetry 99 98 98 Oxygen Delivery Method Room Air Room Air Room Air 12/23/24 18:30 12/23/24 19:30 12/23/24 20:30 Temperature 96.5 F L 96.9 F L 96.8 F L Pulse Rate 70 71 717 H Pulse Rate [Right Pulse Oximeter] Respiratory Rate 16 18 18 Blood Pressure 112/64 118/69 130/65 Blood Pressure [Right Arm] Pulse Oximetry 98 97 97 Oxygen Delivery Method Room Air Room Air Room Air 12/23/24 23:44 12/23/24 23:44 12/23/24 23:44 Temperature 97.9 F Pulse Rate Pulse Rate [Right Pulse Oximeter] 68 Respiratory Rate 16 Blood Pressure Blood Pressure [Right Arm] 115/61 Pulse Oximetry 95 95 95 Oxygen Delivery Method Room Air Room Air 12/24/24 02:48 12/24/24 10:00 12/24/24 10:00 Temperature 97.6 F Pulse Rate Pulse Rate [Right Pulse Oximeter] 79 74 Respiratory Rate 16 20 20 Blood Pressure Blood Pressure [Right Arm] 125/60 Pulse Oximetry 98 94 Oxygen Delivery Method Room Air Room Air 12/24/24 10:23 Temperature 97.9 F Pulse Rate Pulse Rate [Right Pulse Oximeter] 74 Respiratory Rate 20 Blood Pressure Blood Pressure [Right Arm] 105/64 Pulse Oximetry 94 Oxygen Delivery Method Room Air Assessment and Plan Assessment and plan (1) Osteoarthritis of left knee: Problem details: severe - [id number] Status: Acute (2) Status post left knee replacement: Status: Acute Plan - Complete 23 hour perioperative antibiotics. - PT/OT consult for education and assistance. - Social work consult for discharge planning - Prescribed analgesics as needed - DVT prophylaxis: 81 mg aspirin by mouth twice daily, walking, and SCDs - Anticipation is for discharge to home with family/friends today 12/24/2024 if the patient remains medically stable, pain is controlled, and they are safe with mobilization.
== END 2024-12-24 11:17 | disposition home or self-care (01) ==
LOC: OR 10:38 → MEDSURG 10:39
PROVIDERS: PCP Internal Medicine; Visit Provider Orthopaedic Surgery Sports Medicine
PROC: (CPT 27447; principal; 2024-12-23 12:30)
DX: M17.12 Unilateral primary osteoarthritis, left knee (principal); G89.18 Other acute postprocedural pain; Z79.82 Long term (current) use of aspirin
CPT/HCPCS: 27447; 01402; 36415; 64447; 64454; 73560; 76942; 82565; 84132; 84295; 84520; 85025; 97161; 97165; 97535; 99100; A9270; C1776; J0665; J0690; J1100; J2250; J2371; J2405; J2704; J3010; J7120

== ENCOUNTER 2025-02-04 15:55 | Outpatient (CLI) | payer MEDICARE, BC, SELFPAY ==
--- NOTE | 2025-02-04 16:00 | CRLHL7_ITS ---
For Patients: As a result of the Century Cures Act, medical imaging exams and procedure reports are released immediately into your electronic medical record. You may view this report before your referring provider. If you have questions, please contact your health care provider. INDICATION: bilateral screening mammogram, asymptomatic 69 y/o female COMPARISON: 12/26/23, 12/22/22, 12/20/21 TECHNIQUE: CC and MLO views were obtained. These mammographic images have been obtained using full-field digital technique. These mammographic images were interpreted with the benefit of computer aided detection and tomosynthesis. BREAST COMPOSITION: There are scattered areas of fibroglandular density. FINDINGS: No suspicious findings. ASSESSMENT: BI-RADS 1 Negative RECOMMENDATION: Annual screening mammogram. A lay language report of this examination will be provided to the patient. Dictated by: Umesh Villegas MD @ 02/12/2025 12:34:05 (Electronically Signed)
== END 2025-02-04 15:56 | disposition home or self-care (01) ==
LOC: MAMMO 15:56
PROVIDERS: PCP Internal Medicine; Visit Provider Internal Medicine
DX: Z12.31 Encounter for screening mammogram for malignant neoplasm of breast (principal)
CPT/HCPCS: 77063; 77067

== ENCOUNTER 2025-04-10 13:00 | Outpatient (RCR) | payer MEDICARE, BC, SELFPAY ==
--- NOTE | 2024-12-17 16:39 | PT.OPEX ---
[facility] [place] [facility] Start: 12/17/24 09:48 Freq: Status: Active Protocol: Document 12/17/24 15:46 [facility] (Rec: 12/17/24 16:33 [facility] [id number]) E-signed By Saurabh Hurtado, PT Physical Therapy Outpatient Evaluation Insurance Information Recert Due Date 03/11/25 Insurance Name Medicare B Medical Diagnosis Left knee OA M17.12 Presence of left artificial knee joint Z96.652 (surgery ) Treating Diagnosis Left knee pain M25.562 Stiffness left knee M25.662 Difficulty in walking R26.2 Imaging Report Information advanced OA left knee Referring MD Dr. Demario Draper Subjective Preferred Name Thania Subjective Thania reports that her left knee pain started ~six years ago after she fell down stairs and injured her left knee. It has been getting progressively worse since then . PLOF: I ambulation and transfers. She would sometimes walk for exercise and did some Pilates, however, she is relatively sedentary. 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 no focal weakness in LE R LE: WNL ROM and strength UEs: WNL AROM and strength Functional Test Performed & Score Ambulation: w/o AD, +antalgic gait left Stairs: Able to ambulate up/ down both reciprocally and step to pattern (after demonstration) w/ railing + pain left knee Transfers: I Assessment Assessment/Impression 69 year old female presents for pre-op session for left TKA scheduled for 12/23/24. This will be her first TKA. Thania was grateful to have this session to get questions answered and feel better prepared for the surgery next week. She demos impaired functional strength of left quad/glutes, left knee pain and impaired ambulation due to knee pain. She is a good candidate for TKA given her 6 year progression of knee pain and advanced OA. Pt will benefit from continued skilled PT post-op. Patient's older daughter who lives in [facility] will be staying with Thania, as needed, post-op . 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 Primary Functional Limitations ambulation, stairs, prolonged standing Plan of Care Rehabilitation Potential Excellent Physical Therapy Goals Pre-op: 1) Pt will be I with pre-op HEP and verbalize understanding of post-op rehab expectations/fall prevention - goal met Post-op functional goals TBD Coordination/Communication With Referral Source Treatment Plan/Direct Interventions Gait Training,Manual Therapy, Neuromuscular Re-ed,Self-Care/ Home Management,Therapeutic Activities,Therapeutic Exercises Direct Interventions Clarification pre and post TKA protocol Comments Frequency/Duration ~1x/week for 8-12 weeks Patient Will Be Discharged From Therapy Completion of LTG(s), Independent w/HEP, Independently Progressing Evaluation Billing Untimed Code Treatment Minutes 25 Complexity Low Certification Information Initial Certification Date 12/17/24 Ending Certification Date 03/11/25 Provider Signature Required Yes Provider Signature Shows Agreement With POC & Medical Necessity Physician NPI Number Write NPI# Here Physician Comment/Change : Physician Signature & Date Requested Please Sign/Date Here
--- NOTE | 2025-01-30 12:16 | PT.OPDNX ---
[facility] Daily Note PT [facility] Daily [facility] Start: 12/17/24 09:48 Freq: Status: Active Protocol: Document 01/30/25 09:31 [facility] (Rec: 01/30/25 10:34 [facility] [id number]) E-signed By Saurabh Hurtado, PT PT [facility] Daily Progress Note Visit Information Note Type Daily Note,Recert/Progress Note Visit Number [id number] Insurance Authorized Visits up to 12 on POC Insurance Information Recert Due Date 03/11/25 Insurance Name Medicare B Medical Diagnosis Left knee OA M17.12 Presence of left artificial knee joint Z96.652 (surgery ) Treating Diagnosis Left knee pain M25.562 Stiffness left knee M25.662 Difficulty in walking R26.2 Imaging Report Information advanced OA left knee Referring MD Dr. Demario Draper Subjective Preferred Name Thania Monteiro arrives ambulating w/o SEC. She felt uncoordinated with the cane. Night pain is still the main concern, also limited and painful left knee flexion. Left ITB still clicks with bending knee. Pain Comments I don't rate pain Date of Next Physician Visit 12/31/24 Date of Surgery (If applicable) 12/23/24 Precautions Weight Bearing Status Weight Bear as Tolerated Home Exercise Home Exercise Comments Access Code: [email or web address] URL: [email or web address] Date: 01/30/2025 Prepared by: Saurabh Hurtado Objective Other/Pertinent Objective Left knee: 2-0-97 deg left quad: 4-/5 SLS: L: 15 sec R: 15 sec Functional Test Performed & Score LEFS: 33/80 (moderate limitation) Patient Instructed in Risks/Benefits Yes Therapeutic Exercise Therapeutic Exercise Minutes (minutes) 40 Therapeutic Exercise: To Restore NuStep x 10 min w/ inncreasing Functional Status left knee flexion; seat position from 7 to 5 Reviewed, modified and updated HEP. Provided new handout. Access Code: [email or web address] URL: [email or web address] Date: 01/30/2025 Prepared by: Saurabh Hurtado Exercises - Supine Heel Slide with Strap - 3 x daily - 2 sets - 5 reps - Long Sitting Quad Set with Towel Roll Under Heel - 2 x daily - 5-10 reps - 5 seconds hold - Straight Leg Raise - 1 x daily - 1 sets - 15 reps - Sidelying TFL Stretch - 1 x daily - 1 reps - 1-2 minutes hold - Modified Seng Stretch ( Mirrored) - 1 x daily - 1 reps - 1-2 minutes hold - Heel Raises with Counter Support - 1 x daily - 1 sets - 10-15 reps - Standing Hip Abduction with Counter Support - 1 x daily - 10-15 reps - Single Leg Balance with Four Way Reach and Rotation - 1 x daily - 5-8 reps - Squat with Chair Touch - 2 x daily - 5-10 reps - Gastroc Stretch on Wall - 2 x daily - 2-3 reps - 20-30 seconds hold Standing: CKC TKE w/ YTB 12x YTB resisted left knee flexion /hip ext 15x Manual Therapy Techniques Manual Therapy Minutes (minutes) 12 Manual Therapy Techniques patellar mobs sup/inferior glade, emphasis on inferior glide to facilitate knee flexion gentle scar massage/distal quad STM foam roller to L quad in Seng stretch position Gentle left knee ext stretch into 2-3 deg hyperextension Gait & Stair Training Gait Training/Stairs Minutes (minutes) 3 Gait & Stair Training Comments Verbal cues and demonstration to facilitate improved left knee flexion and fluid swing thru during ambulation. Pt w/ return demo. Treatment Minutes Timed Code Treatment Minutes 55 Total Treatment Time 55 Billing Units Manual Therapy Units 1 Therapeutic Exercise Units 3 Assessment/Impression Assessment/Impression Thania is making progress toward functional goals, arriving today ambulating without the SEC. She felt it was more awkward/uncoordinated walking with the cane than without, and she feels steady on her feet. She is up to 15 sec SLS on the left. Thania's primary remaining impairment 5 1/2 weeks s/p left TKA are painful & limited knee flexion past 90 deg, ITB irritability, functional quad /glute strength, fluidity with left swing thru during gait and significant pain when trying to sleep, hence she is sleep deprived. Thania is resistant to trying medications due to past negative reactions to meds. I recommend continuing skilled PT to optimize her functional mobility/strength and utilize skilled MT to address soft tissue restrictions in her quad/ITB to improve knee flexion ROM. Plan of Care Physical Therapy Goals Pre-op: 1) Pt will be I with pre-op HEP and verbalize understanding of post-op rehab expectations/fall prevention - goal met 12/26/24: post-op goals In 8-10 weeks, patient will: 1) Perform all transfers I - goal met 2) Ambulate short community distances I without AD (or SEC at the most) - goal met (with asymmetric gait pattern) 3) Ambulate up/down 3 steps w/ rail, reciprocally, pain max 2/10 - progressing toward 4) Be I with HEP and self- management of residual symptoms New goal 01/30/25: In 6-10 weeks, pt will: 5) Improve LEFS by at least 9 points (MCID) Daily Plan of Care Change POC; See Comments Daily Plan of Care Comments Add on 6-8 weeks of PT at 1-2x /week Recertification Information Initial Certification Date 12/17/24 Recertification Start Date 03/11/25 Recertification Due Date 04/24/25 Reasons to Continue Skilled Therapy Thania's primary remaining impairments 5 1/2 weeks s/p left TKA are painful & limited knee flexion past 90 deg, ITB irritability, functional quad /glute strength, fluidity with left swing thru during gait and significant pain when trying to sleep, hence she is sleep deprived. Thania's LEFS score today reflects she is moderately limited due to her left knee impairments. I recommend continuing skilled PT to optimize her functional mobility/strength and utilize skilled MT to address soft tissue restrictions in her quad/ITB to improve knee flexion ROM. Rehabilitation Potential Excellent Continued Plan of Care and Interventions s/p TKA protocol rehab LE strengthening, closed chain progression, left knee ROM gait training, motor function skilled MT Provider Signature Shows Agreement With POC & Medical Necessity Physician Comment/Change Comment or Changes Physician NPI Number #
== END 2025-04-14 13:11 | disposition home or self-care (01) ==
PROVIDERS: PCP Internal Medicine; Visit Provider Orthopaedic Surgery Sports Medicine
DX: M17.12 Unilateral primary osteoarthritis, left knee (principal); Z96.652 Presence of left artificial knee joint; Z51.89 Encounter for other specified aftercare
CPT/HCPCS: 97110; 97112; 97116; 97140; 97161; 97530; 97535

== ENCOUNTER 2025-05-12 13:30 | Outpatient (CLI) | payer MEDICARE, BC, SELFPAY | END 2025-05-12 13:31 | disposition home or self-care (01) | LOC: NFLDREF 05-14 17:07 | PROVIDERS: PCP Internal Medicine; Referring Provider Internal Medicine; Visit Provider Internal Medicine | DX: M85.80 Other specified disorders of bone density and structure, unspecified site (principal) | CPT/HCPCS: 82310; 82565 ==

== ENCOUNTER 2025-09-26 07:30 | Outpatient (CLI) | payer MEDICARE, BC, SELFPAY | END 2025-09-26 07:31 | disposition home or self-care (01) | LOC: NFLDREF 10-01 21:30 | PROVIDERS: PCP Internal Medicine; Referring Provider Internal Medicine; Visit Provider Internal Medicine | DX: E78.5 Hyperlipidemia, unspecified (principal); I10 Essential (primary) hypertension; M85.80 Other specified disorders of bone density and structure, unspecified site | CPT/HCPCS: 80048; 80061; 82306 ==